=== PATIENT | female | born 1945 | race Caucasian/White ===

== ENCOUNTER 2024-12-14 12:51 | Outpatient (AMB) | payer MEDICARE, MEDICAID, SELFPAY ==
--- NOTE | 2024-12-14 13:36 | A.OFFVIS_ITS ---
Vital Signs 12/14/24 13:37 Height 5 ft 2 in Weight 124 lb BMI 22.7 BP 130/75 Blood Pressure Location Lt brachial Position Sitting Respiration 16 Pulse 86 Pulse Source Pulse Oximeter Pulse Oximetry (%) 97 Oxygen Delivery Method Room Air Intake Visit Reasons: Hip Pain S/P Fall College Sports Coach Required: No Accompanied by: Daughter Allergies bee pollen (BEE POLLEN) Allergy (Severe, Verified 12/14/24 13:41) SWELLING niacin (NIACIN) Allergy (Severe, Verified 12/14/24 13:41) DYSPNEA cimetidine (From TAGAMET) Allergy (Intermediate, Verified 12/14/24 13:41) VOMITING codeine (CODEINE) Allergy (Intermediate, Verified 12/14/24 13:41) N/V Penicillins (PENICILLINS) Allergy (Intermediate, Verified 12/14/24 13:41) N/V penicillin V Allergy (Mild, Verified 12/14/24 13:41) Unknown alendronate sodium (ALENDRONATE SODIUM) Allergy (Unknown, Verified 12/14/24 13:41) UNKNOWN Codeine Phosphate Allergy (Mild, Uncoded 12/14/24 13:41) Unknown HPI Comments Details: Lissett is very pleasant 79 years old female who presents in my office with complains on pain in the lateral surface of the left hip left lower extremity, she reported that her pain started on 09/05/2024. She slipped and fell on water and debris is on the floor. The area where she fell was area under ownership of a chirch and now the patient is suinf this chirch for undisclosed amount of money and damages. She broke her hip and she was performed ORIF of the left hip. She regained her ability to walk however the pain is continuous for the past 3 months. She reports that she can not sleep normally because of her pain she can not do activities of daily living she is taking Tylenol and Advil to help her pain. She had extensive physical therapy, physical therapy did not demonstrate any improvement. She had images appropriately performed demonstrating normal situation of the prosthesis. Past medical history significant for asthma hearing loss arthritis and issues of gallbladder she had large dilatation of gallbladder and obstruction of the common bile duct and pancreatic duct. She states that her numbers are now going to normal after the treatment. She denies any past surgery accept the surgery listed above, she denies smoking cigarettes denies drinking alcohol denies drinking coffee and caffeinated beverages denies recreational drugs. Review of Systems Const All systems reviewed & are unremarkable except as noted in HPI and below ENT Reports Normal hearing present Neuro Reports Normal hearing present, Denies Abnormal speech present, Denies confusion and Denies Sensory deficit (Neuro) Psych Denies confusion Physical Exam Vital Signs: Last Vital Signs Pulse 86 12/14/24 13:37 Resp 16 12/14/24 13:37 BP 130/75 12/14/24 13:37 Pulse Ox 97 12/14/24 13:37 Oxygen Delivery Method Room Air 12/14/24 13:37 BMI result Body Mass Index 22.7 Const General: no acute distress; No confusion Orientation/consciousness: patient oriented x3 and No confusion Eyes General: appearance normal, both eyes and all related structures Pupils: Equal, round and reactive pupils present EOM: EOMs intact bilaterally Neck Neck: Yes full ROM Chest Chest palpation & inspection: normal inspection of the chest Resp Effort & Inspection: normal respiratory effort, able to speak in complete sentences, normal respiratory pattern, no audible wheezes and no cough Cardio Jugular venous distension: no JVD GI Inspection: Yes normal to inspection Neuro General: patient oriented x3, gait normal and No confusion Cranial nerves: Yes CN's II-XII intact bilaterally, Yes Equal, round and reactive pupils present, Yes Normal hearing present and Yes Ability to bilaterally elevate shoulders present Speech: No Abnormal speech present Gait exam (Neuro): Normal gait present Motor exam (neuro): 5/5 motor strength present throughout Sensory Exam: No Sensory deficit (Neuro) Extrem Other: There are 2 small scars on the lateral surface of the right hip both of the scar is a very small no more than 3 cm long, there is no signs of inflammation and no pathological discharge. Range of motion of the right hip is limited compared to the left hip joint. General: No pedal edema Psych Speech and movement: Normal speech and movement present Affect: normal affect Attitude: cooperative Thought process: Normal thought process present Thought content: Normal thought content present Insight: Good insight present (Psych) Judgement: Good judgement present (Psych) Assessment & Plan Assessment & Plan (1) Osteoarthritis of right hip: Code(s): M16.11 - Unilateral primary osteoarthritis, right hip Category: Medical (2) Right hip pain: Code(s): M25.551 - Pain in right hip Category: Medical Plan I offered this patient to perform intra-articular hip steroid injection presuming that her condition is coming from arthritis of the right hip joint. Patient adamantly refused. She tried tramadol in the past and the tramadol being minimal doses and mild opioid gave her already mental status changes which would prevent continuation of this medication and any other opioid medications. I discussed possibility of treatment of the pain with this patient with minimal doses of baclofen. This is minimally sedative muscle relaxants which could help at least to sleep for at night. Patient agreed to try. Unfortunately she did not provide pharmacy for us so I can not prescribe it for her today. We will contact the patient and we will find out which pharmacy she prefers me to send baclofen 5 mg b.i.d.. We will schedule the appointment for the patient in 1 month to assess the results of baclofen. Coding Level of Care Code New Pt Level 3 (35780) Diagnoses Osteoarthritis of right hip M16.11 Right hip pain M25.551
[2024-12-14 13:37] VITALS: BP 130/75; PULSE 86; RESP 16; O2SAT 97; BMI 22.7
--- OUTSIDE RECORDS SUMMARY | 2024-12-14 15:52 | XMS_ITS | Encounter Summary ---
Author Organization [facility] Address [address] [place] [address] Care Team Providers Care Gang Supervisor Name Role Phone Lee Sanabria MD Primary Care Provider [phone] Encounter Details Date Type Department Care Team (Late st Contact Info) Description 09/15/2024 Lab Requisition [facility] - Main Lab [address] [facility] [place] [phone] Wyatt Otero MD [address] [place] [address] [phone] Anemia, unspecified Social History Tobacco Use Types Packs/Day Years Used Date Smoking Tobacco: Never Smokeless Tobacco: Never Alcohol Use Standard Drinks/Week Comments No 0 (1 standard drink = 0.6 oz pur e alcohol) Housing Instability Answer Date Recorde d Are you worried that in the next 2 months you may not have stable housing? No 03/09/2024 Food Access & Nutrition Answer Date Rec orded Do you have access to a vari ety of food including fruits and vegetables? Yes 03/09/2024 Access to Healthcare Answer Date Record ed Within the last 3 months, itz rangel many times did you visit the emergency department for your medical care? 1 03/09/2024 Health Literacy Answer Date Recorded How often do you need to hav e someone help you when you read instructions, pamphlets, or other written material from your doctor or pharmacy? Always 03/09/2024 Caregiver: How often do you need to have someone help you when you read instructions, pamphlets, or other written material from your doctor or pharmacy? Not on file 03/09/2024 Financial Risk Answer Date Recorded How hard is it for you to pa y for the very basics like food, housing, medical care, and air conditioning / heating? Very hard 03/09/2024 Transportation Answer Date Recorded Has the lack of transportati on kept you from meetings, work, or from getting things needed for daily living? No Has the lack of transportati on kept you from medical appointments or from getting medications? No 03/09/2024 Social Isolation Answer Date Recorded How often do you feel lonely or isolated from th ose around you? Rarely 03/09/2024 Food Risk Answer Date Recorded Within the past 12 months we worried whether our food would run out before we got money to buy more. Unable to respond 025 Within the past 12 months th e food we bought just didn't last and we didn't have money to get more. Unable to respond 08/2024 Dependent Care Answer Date Recorded Do you need help finding or paying for care for your loved ones. For example, director of early childhood or elderly care for an older adult? Patient declined 03/09/2024 Education Answer Date Recorded Do you think completing more education or training, like finishing a GED, going to college, or learning a trade, would be helpful for you? Patient declined 03/09/2024 Employment and Income Answer Date Recor ded During the last four weeks, have you been actively looking for work? Patient declined 03/09/2024 Living Situation Answer Date Recorded What is your living situation? 1 05/10/2023 Interpersonal Safety Answer Date Record ed Physical Abuse 09/06/2024 Verbal Abuse 09/06/2024 Comments No Sex and Gender Information Value Date Recorded Sex Assigned at Female 05/02/2024 8:52 PM EST Legal Sex Female 12:31 AM EST Gender Identity Female 05/02/2024 8:52 PM EST Sexual Orientation Straight 05/02/2024 8: 52 PM EST documented as of this encounter Functional Status * Are you deaf or do you have serious difficulty hearing? Answer Date of Assessment Author Yes 09/06/2024 6:04 PM EDT Leanne Haywood RN * Are you blind or do you have serious difficulty seeing, even when wearing glasses? Answer Date of Assessment Author No 09/06/2024 6:04 PM EDT Leanne Haywood RN * Do you have serious difficulty walking or climbing stairs? Answer Date of Assessment Author No 09/06/2024 6:04 PM EDT Leanne Haywood RN * Do you have serious difficulty dressing or bathing? Answer Date of Assessment Author No 09/06/2024 6:04 PM EDT Leanne Haywood RN * Because of a physical, mental, or emotional condition, do you have serious difficulty doing errandsalone such as visiting the doctor? Answer Date of Assessment Author Yes 09/06/2024 6:04 PM EDT Leanne Haywood RN documented as of this encounter Mental Status * Because of a physical, mental, or emotional condition, do you have serious difficulty concentrating, remembering, or making decisions? (5 years old or older) Answer Entry Date Author No 09/06/2024 6:04 PM EDT Leanne Haywood RN documented in this encounter Plan of Treatment Upcoming Encounters Date Type Department Care Team (Late st Contact Info) Description 04/10/2025 2:00 PM EST Office Visit Adult Medicine [facility] [address] [place], [place] [phone] Kinga Gardner NP [address] [place], [place] 04/25/2025 2:15 PM EST Office Visit General Surgery - [address] [place] [phone] Michelle Gallego MD [address] [place] [phone] documented as of this encounter Procedures Procedure Name Priority Date/Time Associated Diagnosis Comments COMPLETE BLOOD COUNT Routine 09/15/2024 5:17 AM EDT Anemia, unspecified COMPREHENSIVE METABOLIC PANEL Routine 09/15/2024 5:17 AM EDT Anemia, unspecified documented in this encounter Results * (ABNORMAL) Comprehensive metabolic panel (09/15/2024 5:17 AM EDT) Sodium 134 133 - 145 mmol/L LAB CHEMISTRY METHOD 09/15/2024 10:53 AM [facility] Potassium 4.2 3.5 - 5.5 mmol/L LAB CHEMISTRY METHOD 09/15/2024 10:53 AM [facility] Chloride 100 96 - 110 mmol/L LAB CHEMISTRY METHOD 09/15/2024 10:53 AM [facility] CO2 27 21 - 32 mmol/L LAB CHEMISTRY METHOD 09/15/2024 10:53 AM [facility] Anion Gap 7 3 - 11 LAB CHEMISTRY METHOD 09/15/2024 10:53 AM [facility] Glucose 70 70 - 100 mg/dL LAB CHEMISTRY METHOD 09/15/2024 10:53 AM [facility] BUN 18 5 - 25 mg/dL LAB CHEMISTRY METHOD 09/15/2024 10:53 AM [facility] Creatinine 0.62 0.50 - 1.10 mg/dL LAB CHEMISTRY METHOD 09/15/2024 10:53 AM [facility] eGFR 91 >=60 mL/min/1. 73m2 LAB CHEMISTRY METHOD 09/15/2024 10:53 AM [facility] Comment:Calculation based on the Chronic Kidney Disease Epidemiology Collaboration (CKD-EPI) equation refit without adjustment for race. BUN/Creatinine Ratio 29.0 LAB CHEMISTRY METHOD 09/15/2024 10:53 AM [facility] Calcium 9.0 8.5 - 10.5 mg/dL LAB CHEMISTRY METHOD 09/15/2024 10:53 AM [facility] AST (SGOT) 20 10 - 42 unit/L LAB CHEMISTRY METHOD 09/15/2024 10:53 AM EDT [facility] ALT (SGPT) 16 10 - 60 unit/L LAB CHEMISTRY METHOD 09/15/2024 10:53 AM EDT [facility] Alkaline Phosphatase 96 42 - 121 unit/L LAB CHEMISTRY METHOD 09/15/2024 10:53 AM EDT [facility] Total Protein 5.9(L) 6.0 - 8.0 g/dL LAB CHEMISTRY METHOD 09/15/2024 10:53 AM EDT [facility] Albumin 2.8(L) 3.2 - 5.0 g/dL LAB CHEMISTRY METHOD 09/15/2024 10:53 AM [facility] Total Bilirubin 0.5 0.0 - 1.4 mg/dL LAB CHEMISTRY METHOD 09/15/2024 10:53 AM [facility] Blood Venous blood specimen / Unknown Venipuncture / Unknown 09/15/2024 5:17 AM EDT 09/15/2024 9:26 AM EDT us Wyatt Otero MD LAB BLOOD ORDERABLES Final Result [facility] [address] [place] [address], * (ABNORMAL) Complete blood count (09/15/2024 5:17 AM EDT) WBC 9.9 4.8 - 10.8 K/mcL LAB HEMETOLOGY METHOD 09/15/2024 10:28 AM EDT [facility] RBC 3.30(L) 3.80 - 4.80 M/mcL LAB HEMETOLOGY METHOD 09/15/2024 10:28 AM EDT [facility] Hemoglobin 9.1(L) 11.5 - 16.0 g/dL LAB HEMETOLOGY METHOD 09/15/2024 10:28 AM EDT [facility] Hematocrit 29.7(L) 35.0 - 47.0 % LAB HEMETOLOGY METHOD 09/15/2024 10:28 AM EDT [facility] MCV 89.5 79.0 - 98.0 FL LAB HEMETOLOGY METHOD 09/15/2024 10:28 AM EDT [facility] MCH 27.4 27.0 - 32.0 pcg LAB HEMETOLOGY METHOD 09/15/2024 10:28 AM EDT [facility] MCHC 30.6(L) 32.0 - 37.0 g/dL LAB HEMETOLOGY METHOD 09/15/2024 10:28 AM EDT [facility] RDW 14.9 11.0 - 15.0 % LAB HEMETOLOGY METHOD 09/15/2024 10:28 AM [facility] Platelets 546(H) 130 - 400 K/mcL LAB HEMETOLOGY METHOD 09/15/2024 10:28 AM EDT [facility] MPV 9.2 7.0 - 11.0 FL LAB HEMETOLOGY METHOD 09/15/2024 10:28 AM EDT [facility] NRBC 0.0 <1.0 % LAB HEMETOLOGY METHOD 09/15/2024 10:28 AM [facility] NRBC Absolute 0.00 <0.10 K/mcL LAB HEMETOLOGY METHOD 09/15/2024 10:28 AM T [facility] Blood Venous blood specimen / Unknown Venipuncture / Unknown 09/15/2024 5:17 AM EDT 09/15/2024 9:26 AM EDT Wyatt Otero MD LAB BLOOD ORDERABLES Final Result [facility] [address] [place] [address], documented in this encounter Visit Diagnoses Diagnosis Anemia, unspecified documented in this encounter Additional Health Concerns Assessment Noted Time PHQ-9 Depression Total Score: 14 024 9:05 AM EST documented as of this encounter Care Teams Gang Supervisor Relationship Specialty Start Date End Date Lee Sanabria MD [address] [place] [address] PCP - General 11/26/10 documented as of this encounter
--- OUTSIDE RECORDS SUMMARY | 2024-12-14 15:52 | XMS_ITS | Clinical Summary ---
Author Organization [facility] Address [address] [place] [address] Care Team Providers Care Cracker Dough Mixer Name Role Phone Unavailable Primary Care Provider Unavailabl e Social History Tobacco Use Types Packs/Day Years Used Date Smoking Tobacco: Never Assessed Comments Unknown Sex and Gender Information Value Date Recorded Sex Assigned at Not on file Legal Sex Female 12:54 PM EDT Gender Identity Not on file Sexual Orientation Not on file Plan of Treatment Health Maintenance Due Date Last Done Comments Advance Care Planning 1945 Hepatitis C Virus Screening 1945 DTaP/Tdap/Td Vaccines (1 - Tdap) 1964 Pneumococcal Vaccines 50+ (1 of 1 - PCV) 1995 Zoster (Shingles) Vaccine (1 of 2) 1995 RSV Vaccine 60 years and old er and Patients (1 - 1-dose 75+ series) 2020 COVID-19 Vaccine ( - 2023-2 5 season) 2024 Hepatitis B Vaccines Aged Out No long er eligible based on patient's age to complete this topic
--- OUTSIDE RECORDS SUMMARY | 2024-12-14 15:52 | XMS_ITS | Clinical Summary ---
Author Organization [facility] Address [address] [place] [address] Care Team Providers Care Engineering Lab Technician Name Role Phone Lee Sanabria MD Primary Care Provider Allergies Active Allergy Reactions Criticality Noted Date Comments Codeine Other (See Comments) 10/18/2023 Altered mental status Niacin Hives 10/18/2023 Penicillins Hives 10/18/2023 Medications Medication Sig Dispensed Refills Start Date End Date Status sulfaSALAzine (AZULFIDINE) 500 MG tablet Take 1 tablet (500 mg total) by mouth daily. 0 11/10/2017 Active potassium chloride (KLOR-CON) 20 MEQ packet Take 20 mEq by mouth daily. 0 06/09/2023 Active Omeprazole 20 MG TBEC Take 20 mg by mouth daily. 0 11/10/2017 Active montelukast (SINGULAIR) 10 MG tablet Take 1 tablet (10 mg total) by mouth daily. 0 11/10/2017 Active fluticasone-salmetero l (ADVAIR HFA) 115-21 MCG/ACT inhaler Inhale 2 puffs into the lungs daily. 0 03/26/2023 Active amLODIPine (NORVASC) tablet 2.5 mg Take 1 tablet (2.5 mg total) by mouth daily. 0 09/09/2023 Active atorvastatin (LIPITOR) tablet 40 mg Take 1 tablet (40 mg total) by mouth daily. 0 11/10/2017 Active oxyCODONE (ROXICODONE) 5 MG immediate release tablet Take 1 tablet (5 mg total) by mouth every 8 (eight) hours as needed for pain. 20 tablet 0 10/30/2023 Active QUEtiapine (SEROquel) 50 MG tablet Take 1 tablet (50 mg total) by mouth 2 (two) times a day. 60 tablet 0 10/30/2023 Active Active Problems Problem Noted Date Diagnosed Date Ascending cholangitis 10/19/2023 Pancreatitis, unspecified pancreatitis type 10/04 Elevated bilirubin 10/18/2023 Acute hypotension 10/18/2023 Social History Tobacco Use Types Packs/Day Years Used Date Smoking Tobacco: Never Assessed Sex and Gender Information Value Date Recorded Sex Assigned at Female 10/18/2023 9:38 PM EDT Gender Identity Not on file Sexual Orientation Not on file Job Start Date Occupation Industry Not on file Not on file Not on file Last Filed Vital Signs Vital Sign Reading Time Taken Comments Blood Pressure 110/74 11/02/2023 5:44 AM EDT Pulse 98 11/02/2023 5:44 AM EDT Temperature 37.1 C (98.8 F) 11/02/2023 5:44 AM EDT Respiratory Rate 18 11/02/2023 5:44 AM EDT Oxygen Saturation 96% 11/02/2023 5:44 AM EDT Inhaled Oxygen Concentration - - Weight 55 kg (121 lb 4.1 oz) 10/18/2023 8:29 PM EDT Height 160 cm (5' 3 ) 10/19/2023 2:33 AM EDT Body Mass Index 21.48 10/18/2023 8:29 PM EDT Plan of Treatment Health Maintenance Due Date Last Done Comments Hepatitis C Screening 1945 Depression Screening 1957 Preventative Health Evaluation 1963 Fall Risk Assessment 2010 Osteoporosis Screening (DEXA Scan) 2010 Shingrix-Zoster Vaccine (2 of 2) 05/17/2019 03/22/2019 RSV Adult > 60+ Yrs or (1 - 1-dose 75+ series) 2020 COVID-19 Vaccine ( - season) 2024 01/18/2021, 06/01/2020, 05/11/2020 Influenza Vaccine (#1) 2024 2, 12/31/2020, 12/28/2017, Additional history exists DTap / Tdap / Td (2 - Td or Tdap) 11/26/2025 11/27/2015 Pneumococcal Vaccine Completed 10/26/2017, 11/23/2015, 12/12/2010 Hepatitis B Vaccines Aged Out No long er eligible based on patient's age to complete this topic RSV Ped < 20 months Aged Out No longe r eligible based on patient's age to complete this topic Advance Directives For more information, please contact: [phone] Latest Code Status on File Code Status Date Activated Date Inactivated Comments Full Code 10/18/2023 9:14 PM 11/02/2023 10:44 PM This code status was ascertained in the following way: per living will or healthcare instructions . Care Teams Engineering Lab Technician Relationship Specialty Start Date End Date Lee Sanabria MD PCP - General Internal Medicine 10/18/23
--- OUTSIDE RECORDS SUMMARY | 2024-12-14 15:52 | XMS_ITS | Encounter Summary ---
Author Organization [facility] Address [address] [place] [address] Care Team Providers Care Business Risk Consultant Name Role Phone Lee Sanabria MD Primary Care Provider [phone] Encounter Details Date Type Department Care Team (Late st Contact Info) Description 09/21/2024 Lab Requisition [facility] - Main Lab [address] [facility] [place] [phone] Wyatt Otero MD [address] [place] [address] [phone] Anemia, unspecified Social History Tobacco Use Types [...] care for your loved ones. For example, children's counselor or elderly care for an older adult? [...] 2:00 PM EST Office Visit Adult Medicine [facility] [place] [address] [place], [place] [phone] Kinga Gardner, SINDY [address] [place], [place] 04/25/2025 2:15 PM EST Office Visit General Surgery [address] [place] [address] Michelle Gallego MD [address] [place] [phone] documented as of this encounter Visit Diagnoses Diagnosis Anemia, unspecified documented in this encounter Additional Health Concerns Assessment Noted Time PHQ-9 Depression Total Score: 14 024 9:05 AM EST documented as of this encounter Care Teams Business Risk Consultant Relationship Specialty Start Date End Date Lee Sanabria MD [address] [place] [address] PCP - General 11/26/10 documented as of this encounter
--- OUTSIDE RECORDS SUMMARY | 2024-12-14 15:52 | XMS_ITS | Clinical Summary ---
Author Organization [address] Address [address] [place] [address] Phone Care Team Providers Care Dog License Officer Supervisor Name Role Phone Lee Sanabria MD Primary Care Provider [phone] Allergies Active Allergy Reactions Criticality Noted Date Comments Alendronate Sodium 04/10/2005 per pt Bee Venom Protein (Honey Bee) Swelling 09/18/2007 Cimetidine 04/10/2005 can not take generic Codeine Other 04/10/2005 hallucinations Altered mental status Niacin Hives,Rash 04/10/2005 Penicillins Hives 04/10/2005 Quetiapine 11/11/2023 Medications calcium carbonate (OS-PARMINDER) 1,250 mg (500 mg elemental calcium) tablet Take 1 tablet (1,250 mg total) by mouth 2 (two) times a day. 04/24/19 24 Active fluticasone propion-salmet Abhishek (ADVAIR HFA) 115-21 mcg/actuation inhaler Inhale 2 puffs into the lungs daily. 03/26/20 23 Active albuterol HFA (PROAIR HFA ; PROVENTIL HFA ; VENTOLIN HFA) 90 mcg/actuation inhaler Inhale 2 Puffs into the lungs as needed for Cough or Wheezing. 12/11/19 22 Active psyllium (METAMUCIL) 3.4 gram packet Take 1 packet by mouth 1 (one) time each day. Active atorvastatin (LIPITOR) 80 mg tablet Take 1 tablet (80 mg total) by mouth 1 (one) time each day. 90 tablet 1 05/20/19 25 Active montelukast (SINGULAIR) 10 mg tablet Take 1 tablet (10 mg total) by mouth 1 (one) time each day. 90 tablet 1 05/20/19 25 Active magnesium oxide (MAG-OX) 400 mg magnesium tablet Take 1 tablet (400 mg total) by mouth 1 (one) time each day. Active lidocaine 4 % patch Apply 2 patches topically 1 (one) time each day. 09/13/19 25 Active senna (SENOKOT) 8.6 mg tablet Take 2 tablets (17.2 mg total) by mouth at bedtime. 09/12/19 25 026 Active aspirin 81 mg EC tablet Take 1 tablet (81 mg total) by mouth 2 (two) times a day. For DVT prophylaxis. Take 81 mg orally twice a day for 6 weeks after surgery and then 81 mg daily indefinitely. 09/13/19 25 026 Active Vitamin D3 50 mcg (2,000 unit) tablet TAKE 1 TABLET (2,000 UNITS TOTAL) BY MOUTH ONCE DAILY 90 tablet 1 11/15/19 25 Active amLODIPine (NORVASC) 2.5 mg tablet TAKE 1 TABLET BY MOUTH EVERY DAY 90 tablet 1 11/23/19 25 Active omeprazole (PriLOSEC) [address] capsule TAKE 1 CAPSULE BY MOUTH EVERY DAY 90 capsule 1 11/23/19 25 Active acetaminophen (TYLENOL) 325 mg tablet Take 1 tablet (325 mg total) by mouth every 4 (four) hours if needed. Active amLODIPine (NORVASC) 2.5 mg tablet TAKE 1 TABLET BY MOUTH EVERY DAY 90 tablet 1 05/26/19 25 025 Discontinued omeprazole (PriLOSEC) [address] capsule TAKE 1 CAPSULE BY MOUTH EVERY DAY 90 capsule 1 05/26/19 25 025 Discontinued Active Problems Problem Noted Date Diagnosed Date Anemia 09/27/2024 Fall, initial encounter 09/06/2024 COVID-19 04/19/2024 Assessment & Plan (05/02/2024 1:02 PM EST): Dilated pancreatic duct 03/01/2024 Assessment & Plan (03/02/2024 9:35 AM EST): I will need to get her GI office notes, despite my growing familiarity with the pt and family dynamic as well as review of previous primary office notes, I admittedly do not have a clear clinical picture. It seems the pt has a dilated pancreatic duct and CBD, and was referred by her GI doctor Dr. Nye at [facility] to see [facility] General surgery. I do see record in the system that staff at their office had tried to contact the family but have difficulties getting through. I spoke with pt's daughter and health care proxy Tegan about this, and advised her to call them back to schedule. She told me they didn't know why she was calling them so I will place a referral to hopefully eliminate any confusion. We will try again to get records from [facility] GI. Orders: Ambulatory referral to General Surgery; Future HTN (hypertension), benign 03/01/2024 Assessment & Plan (03/02/2024 9:35 AM EST): Will continue amlodipine. BP well controlled. Orders: Thyroid stimulating hormone; Future Lipid panel with reflex to direct LDL; Future Comprehensive metabolic panel; Future Complete blood count; Future Hyperlipidemia 03/01/2024 Assessment & Plan (03/02/2024 9:35 AM EST): Triglycerides 203 in October, will follow annually. Pt remains on atorvastatin. Orders: Thyroid stimulating hormone; Future Lipid panel with reflex to direct LDL; Future Comprehensive metabolic panel; Future Complete blood count; Future Thyroid nodule 03/01/2024 Assessment & Plan (03/31/2024 10:28 AM EST): Orders: Thyroid stimulating hormone; Future Basic metabolic panel; Future Complete blood count; Future Iron and TIBC; Future Ferritin; Future Assessment & Plan (03/02/2024 9:35 AM EST): History of follicular adenoma removed 2021. Her last TSH was about a year ago at 3.99. Orders placed for repeat testing. 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 Seronegative rheumatoid arth ritis ([facility] V24, [facility] V28) 03/01/2024 Assessment & Plan (03/02/2024 9:35 AM EST): She has been referred to rheumatology for this. We do not have any recent record. The patient has described receiving corticosteroid injections for this. Asthma 03/01/2024 Assessment & Plan (03/02/2024 9:35 AM EST): Her lungs are clear on examination today. Her breathing has been stable. Orders: Thyroid stimulating hormone; Future Lipid panel with reflex to direct LDL; Future Comprehensive metabolic panel; Future Complete blood count; Future Encounters Date Type Department Care Team Description 11/28/2024 2:00 PM EDT Office Visit Adult Medicine [address] [phone] Kinga Gardner NP S/P right hip fracture (Primary Dx); Accidental fall, subsequent encounter; Chronic pain of left knee; Gallbladder anomaly; Elevated TSH 11/23/[address] [phone] Mary Morel MA 11/21/2024 9:05 AM EDT - 11/21/2024 11:59 PM EDT Hospital Encounter [facility] Ortho Xray [address] [place] [address] Pain Discharge Disposition: Home or Self Care 11/21/2024 7:50 AM EDT - 11/21/2024 11:59 PM EDT Hospital Encounter [facility] Ortho Xray [address] [place] [address] Pain Discharge Disposition: Home or Self Care 10/25/2024 9:45 AM EDT Office Visit General Surgery [facility] [address] [place] [phone] Michelle Gallego MD Choledocholithiasis (Primary Dx); Weight loss; History of acute cholangitis; Dilated pancreatic duct 10/13/[address] [phone] Lee Sanabria MD 10/06/[address] [phone] Lee Sanabria MD 10/03/[address] [phone] Lee Sanabria MD 09/27/2024 10:00 AM EDT Office Visit [address] [phone] Lee Sanabria MD S/P right hip fracture (Primary Dx); Moderate mixed hyperlipidemia not requiring statin therapy; Anemia, unspecified type; HTN (hypertension), benign; Accidental fall, subsequent encounter 09/22/2024 8:49 AM EDT - 09/22/2024 11:59 PM EDT Hospital Encounter [facility] Ortho Xray [address] [place] [address] Pain Discharge Disposition: Home or Self Care 09/21/2024 Lab Requisition [facility] Lab [address] [facility] [place] [phone] Wyatt Otero MD Anemia, unspecified 09/20/[address] [phone] Lee Sanabria MD 09/19/[address] [phone] Lee Sanabria MD 09/15/[address] [facility] Lab [address] [facility] [employer] [place] [address] Wyatt Otero MD Anemia, unspecified 09/06/2024 5:45 PM EDT - 09/14/2024 3:05 PM EDT Hospital Encounter [facility] Unit [address] [place] [address] Ollie Gupta MD Maduakor, Emmanuel C, MD Zipagan, James T, MD Kokosadze, Estate, MD Closed fracture of right hip, initial encounter ([facility] V24, [facility] V28) (Primary Dx); Fall, initial encounter; Closed head injury, initial encounter; Right hip pain Discharge Disposition: [facility] Facility from Last 3 Months Immunizations Name Administration Dates Next Due Influenza trivalent, 0.5mL ( Fluad) 65yo and older 03/31/2024,01/14/2022,12/31/2020,12/28,01/15/2017 Influenza trivalent, 0.5mL, preservative free (Fluarix; FluLaval; Fluzone) ages 6mo and older (Afluria) 3 years and older 03/05/2016,03/15/2015 Pneumococcal conjugate 13 va lent (Prevnar 13, PCV13) 2mo and older 10/26/2017 Pneumococcal polysaccharide 23 valent (Pneumovax 23) 2yo and older 11/23/2015,12/12/2010 Tdap Tetanus diptheria acell ular pertussis (Boostrix; Adacel) 7yo and older 11/27/2015 Zoster recombinant (Shingrix ) 19yo and older 03/22/2019 Surgical History Surgery Date Site/Laterality Comments CATARACT EXTRACTION PROCEDURE: HISTORICAL CATARACT REMOVAL OTHER SURGICAL HISTORY 06/25/2021 Left PROCEDURE: ---- OTHER ----; COMMENT: hemoithyriudectomy HYSTERECTOMY CT PERCUTANEOUS CHOLECYSTECTOMY cholecystostomy tube or percutaneous cholecystostomy tube TOTAL KNEE ARTHROPLASTY Medical History Medical History Date Comments Unspecified asthma(493.90) 12/30/2005 DX:Un specified asthma(493.90) Esophageal reflux 06/26/2006 DX:Esophageal reflux Heart disease, unspecified DX:He art disease, unspecified Unspecified glaucoma(365.9) DX:U nspecified glaucoma(365.9) Hearing loss 09/23/2012 DX:Hearing loss; COMMENT: See note 09/23/12 Thyroid nodule 02/09/2017 DX:Thyroid nodul e Cataract 12/28/2017 DX:Cataract; COM MENT: S/p surgery 2018 COVID-19 virus infection 02/22/2020 DX:COVI D-19 virus infection Essential hypertension 06/11/2020 DX:Essent ial hypertension Hyperlipidemia DX:Hyperlipidemi a HTN (hypertension), benign 03/01/2024 Thyroid nodule 03/01/2024 Family History Medical History Relation Name Comments Breast cancer Aunt 2 m aunts No Known Problems Brother No Known Problems Father No Known Problems Maternal Grandfather No Known Problems Maternal Grandmother Heart attack Mother age 59 Breast cancer Other 1 1 m cousins No Known Problems Paternal Grandfather No Known Problems Paternal Grandmother No Known Problems Sister No Known Problems Uncle Blindness Neg Hx Cataracts Neg Hx Glaucoma Neg Hx Macular degeneration Neg Hx Strabismus Neg Hx Relation Name Status Comments Aunt 2 m aunts Brother Father Maternal Grandfather Maternal Grandmother Mother Other 1 1 m cousins Other 2 Other Paternal Grandfather Paternal Grandmother Sister Uncle Social History Tobacco Use Types Packs/Day Years Used Date Smoking Tobacco: Never Smokeless Tobacco: Never Tobacco Cessation:Counseling Given: Not Answered Alcohol Use Standard Drinks/Week Comments No 0 [...] Record ed Within the last 3 months, ho w many times did you visit the emergency [...] care for your loved ones. For example, child care giver or elderly care for an older adult? [...] Orientation Straight 05/02/2024 8: 52 PM EST Obstetrics History Last Filed Vital Signs Vital Sign Reading Time Taken Comments Blood Pressure 129/82 11/28/2024 1:42 PM EDT Pulse 96 11/28/2024 1:42 PM EDT Temperature 36.3 C (97.4 F) 11/28/2024 1:42 PM EDT Respiratory Rate 14 11/28/2024 1:42 PM EDT Oxygen Saturation 94% 11/28/2024 1:42 PM EDT Inhaled Oxygen Concentration - - Weight 56.7 kg (125 lb) 11/28/2024 1:42 PM EDT Height 157.5 cm (5' 2 ) 11/28/2024 1:42 PM EDT Body Mass Index 22.86 11/28/2024 1:42 PM EDT Plan of Treatment Upcoming Encounters Date Type Department Care Team (Late st Contact Info) Description 04/10/2025 2:00 PM EST Office Visit Adult Medicine [facility] [address] [place], [place] [phone] Kinga Gardner NP [address] [place], [place] 04/25/2025 2:15 PM EST Office Visit General Surgery - [place] [address] [facility] [address] [place] [address] Michelle Gallego MD [address] [place] [phone] Health Maintenance Due Date Last Done Comments Zoster Vaccines (2 of 2) 05/17/2019 03/22/2019 RSV Immunization Adult Patients (1 - 1-dose 75+ series) 2020 Osteoporosis Screening (Bone Density Screening) 03/15/2022 Depression Screening 04/06/2024 03/31/2024 COVID-19 Vaccine ( season) 2024 01/18/2021, 06/01/2020, 05/11/2020 Influenza Vaccine (#1) 2024 , 03/06/2023, 01/14/2022, Additional history exists Medicare Annual Wellness Visit 03/31/2025 03/31/2024 Social Influencers of Health Screening 09/08/2025 09/08/2024 Falls Risk Assessment 09/14/2025 09/14/2024, 024 Hypertension/CHF/CAD Annual BMP Blood Test 09/15/2025 09/15/2024, 09/09/2024, 09/07/2024, Additional history exists Cholesterol Screening (Lipid Panel) 03/21/2029 03/21/2024, 03/26/2022 DTaP,Tdap,and Td Vaccines (3 - Td or Tdap) 11/13/2033 11/14/2023, 11/27/2015 Hepatitis C Screening Completed 03/08/2015 Pneumococcal Vaccine: 50+ Years Completed 10/26/2017, 11/23/2015, 12/12/2010 HIB Vaccines Aged Out No longer eligi ble based on patient's age to complete this topic HPV Vaccines Aged Out No longer eligi ble based on patient's age to complete this topic Hepatitis A Vaccines Aged Out No long er eligible based on patient's age to complete this topic Hepatitis B Vaccines Aged Out No long er eligible based on patient's age to complete this topic IPV Vaccines Aged Out No longer eligi ble based on patient's age to complete this topic MMR Vaccines Aged Out No longer eligi ble based on patient's age to complete this topic Meningococcal ACWY Vaccine Aged Out N o longer eligible based on patient's age to complete this topic Meningococcal B Vaccine Aged Out No l onger eligible based on patient's age to complete this topic RSV Immunization Patients Under 20 months Aged Out No longer eligible based on patient's age to complete this topic Varicella Vaccines Aged Out No longer eligible based on patient's age to complete this topic Medical Devices Implanted Type Area Professor Of Geography Device Identifier Shelf Expiration Date Model / Serial / Lot Nail Trochant [id number] 130deg [employer] Ti - Sn/A - [id number] Implanted:Qty: 1 on 09/07/2024 by Iván Hassan MD at [facility] Internal and External Fixation Right: Hip [facility] 1176.6034 S / N/A / [id number] Screw Lag 10.5x90mm Ti [employer] Troch Nail Sys - Sn/A - [id number] Implanted:Qty: 1 on 09/07/2024 by Iván Hassan MD at [facility] Internal and External Fixation Right: Hip [facility] 1176.0090 S / N/A / [id number] K-[employer] Thrd Drill Point [id number] - Sn/A - [id number] Implanted:Qty: 1 on 09/07/2024 by Iván Hassan MD at [facility] Internal and External Fixation Right: Hip [facility] [id number] S / N/A / N/A Procedures Procedure Name Priority Date/Time Associated Diagnosis Comments XR FEMUR 2+ VIEWS RIGHT Routine 11/21/2024 9:12 AM EDT Pain XR HIP 2-3 VIEWS RIGHT Routine 11/21/2024 9:12 AM EDT Pain XR FEMUR 2+ VIEWS RIGHT Routine 09/22/2024 9:00 AM EDT Pain COMPREHENSIVE METABOLIC PANEL Routine 09/15/2024 5:17 AM EDT Anemia, unspecified COMPLETE BLOOD COUNT Routine 09/15/2024 5:17 AM EDT Anemia, unspecified ECG OUTSIDE 09/15/2024 ECG ANNOTATED 09/15/2024 LIPID PANEL WITH REFLEX TO DIRECT LDL Routine 03/21/2024 12:27 PM EST HTN (hypertension), benign Hyperlipidemia, unspecified hyperlipidemia type Thyroid nodule Seronegative rheumatoid arthritis (CMS/HCC V24, CMS/HCC V28) Asthma, unspecified asthma severity, unspecified whether complicated, unspecified whether persistent FALLS RISK ASSESSMENT Routine 06/08/2023 HEPATITIS C SCREENING Routine 03/08/2015 from Last 3 Months or Most Recently Relevant to Health Maintenance Results * XR Femur 2+ Views Right (11/21/2024 9:12 AM EDT) Only the most recent of2 resultswithin the time period is included. Narrative RIS PACS/VR - 11/21/2024 9:12 AM EDT This order has been auto-finalized and does not contain a result. us Teri Meneses MD IMG XR PROCEDURES Final Result RIS PACS/VR * XR Hip 2-3 Views Right (11/21/2024 9:12 AM EDT) Narrative RIS PACS/VR - 11/21/2024 9:12 AM EDT This order has been auto-finalized and does not contain a result. us Teri Meneses MD IMG XR PROCEDURES Final Result RIS PACS/VR * (ABNORMAL) Complete blood count (09/15/2024 5:17 AM EDT) [facility] Signature WBC 9.9 4.8 - 10.8 K/mcL LAB HEMETOLOGY METHOD 09/15/2024 10:28 AM EDT [facility] RBC 3.30(L) 3.80 - 4.80 M/mcL LAB [facility] Hemoglobin 9.1(L) 11.5 - 16.0 g/dL LAB HEMETOLOGY METHOD 09/15/2024 10:28 AM [facility] Hematocrit 29.7(L) 35.0 - 47.0 % LAB HEMETOLOGY METHOD [facility]15[facility]2024 10[facility] MCV 89.5 79.0 - 98.0 FL LAB HEMETOLOGY METHOD 09/15/2024 10:[facility] MCH 27.4 27.0 - 32.0 pcg LAB HEMETOLOGY METHOD 09/15/2024 10:28 AM [facility] MCHC 30.6(L) 32.0 - 37.0 g/dL LAB HEMETOLOGY METHOD 09/15/2024 10:[facility] RDW 14.9 11.0 - 15.0 % LAB HEMETOLOGY METHOD 09/15/2024 10:[facility] Platelets 546(H) 130 - 400 K/mcL LAB HEMETOLOGY METHOD 09/15/2024 10:28 AM [facility] MPV 9.2 7.0 - 11.0 FL LAB HEMETOLOGY METHOD 09/15/2024 10:[facility] NRBC 0.0 <1.0 % LAB HEMETOLOGY METHOD 09/15/2024 10:28 AM EDT [facility] LAB NRBC Absolute 0.00 <0.10 K/mcL LAB HEMETOLOGY METHOD 09/15/2024 10:28 AM [facility] LAB Blood Venous blood specimen / Unknown Venipuncture / Unknown 09/15/2024 5:17 AM EDT 09/15/2024 9:26 AM EDT us Wyatt Otero MD LAB BLOOD ORDERABLES Final Result [facility] [address] [place] [address], * (ABNORMAL) Comprehensive metabolic panel (09/15/2024 5:17 AM EDT) Sodium 134 133 - 145 mmol/L LAB CHEMISTRY METHOD 09/15/2024 10:53 AM [facility] LAB Potassium 4.2 3.5 - 5.5 mmol/L LAB CHEMISTRY METHOD 09/15/2024 10:53 AM [facility] LAB Chloride 100 96 - 110 mmol/L LAB CHEMISTRY METHOD 09/15/2024 10:53 AM [facility] CO2 27 21 - 32 mmol/L LAB CHEMISTRY METHOD 09/15/2024 10:53 AM [facility] Anion Gap 7 3 - 11 LAB CHEMISTRY METHOD 09/15/2024 10:53 AM [facility] LAB Glucose 70 70 - 100 mg/dL LAB CHEMISTRY METHOD 09/15/2024 10:53 AM [facility] BUN 18 5 - 25 mg/dL LAB CHEMISTRY METHOD 09/15/2024 10:53 AM [facility] LAB Creatinine 0.62 0.50 - 1.10 mg/dL LAB CHEMISTRY METHOD 09/15/2024 10:53 AM [facility] LAB eGFR 91 >=60 mL/min/1. 73m2 LAB CHEMISTRY METHOD 09/15/2024 10:53 AM [facility] LAB Comment:Calculation based on the Chronic Kidney Disease Epidemiology Collaboration (CKD-EPI) equation refit without adjustment for race. BUN/Creatinine Ratio 29.0 LAB CHEMISTRY METHOD 09/15/2024 10:53 AM [facility] Calcium 9.0 8.5 - 10.5 mg/dL LAB CHEMISTRY METHOD 09/15/2024 10:53 AM [facility] AST (SGOT) 20 10 - 42 unit/L LAB CHEMISTRY METHOD 09/15/2024 10:53 AM [facility] ALT (SGPT) 16 10 - 60 unit/L LAB CHEMISTRY METHOD 09/15/2024 10:53 AM [facility] Alkaline Phosphatase 96 42 - 121 unit/L LAB CHEMISTRY METHOD 09/15/2024 10:53 AM [facility] Total Protein 5.9(L) 6.0 - 8.0 g/dL LAB CHEMISTRY METHOD 09/15/2024 10:53 AM [facility] Albumin 2.8(L) 3.2 - 5.0 g/dL LAB CHEMISTRY METHOD 09/15/2024 10:53 AM [facility] Total Bilirubin 0.5 0.0 - 1.4 mg/dL LAB CHEMISTRY METHOD 09/15/2024 10:53 AM [facility] LAB Blood Venous blood specimen / Unknown Venipuncture / Unknown 09/15/2024 5:17 AM EDT 09/15/2024 9:26 AM EDT us Wyatt Otero MD LAB BLOOD ORDERABLES Final Result [facility] [address] [place] [address], [place] [phone] * ECG-Outside (09/15/2024) us Provider Onbase MD ECG ORDERABLES Final Result * ECG-Annotated (09/15/2024) us Provider Onbase MD ECG ORDERABLES Final Result * Lipid panel with reflex to direct LDL (03/21/2024 12:27 PM EST) [facility] Cholesterol 177 0 - 200 mg/dL LAB CHEMISTRY METHOD 03/21/2024 7:30 PM EST [facility] LAB Triglycerides 117 0 - 150 mg/dL LAB CHEMISTRY METHOD 03/21/2024 7:30 PM EST [facility] LAB HDL 58 >=40 mg/dL LAB CHEMISTRY METHOD 03/21/2024 7:30 PM [facility] LDL Calculated 96 0 - 100 mg/dL LAB CHEMISTRY METHOD 03/21/2024 7:30 PM EST [facility] LAB VLDL Cholesterol Parminder 23.4 mg/dL LAB CHEMISTRY METHOD 03/21/2024 7:30 PM EST [facility] LAB Non HDL Chol. (LDL+VLDL) 119 <145 mg/dL LAB CHEMISTRY METHOD 03/21/2024 7:30 PM EST [facility] LAB Chol/HDL Ratio 3.1 0.0 - 4.4 LAB CHEMISTRY METHOD 03/21/2024 7:30 PM EST [facility] LAB Blood Venous blood specimen / Unknown Venipuncture / Unknown 03/21/2024 12:27 PM EST 03/21/2024 12:27 PM EST Prasanna GOLDEN LAB BLOOD ORDERABLES Fin al Result [facility] [address] [place] [address], * Falls Risk Assessment (06/08/2023) Falls Risk Assessment abstractedabstracted us Historical Provider HEALTH MAINTENANCE Final Result * Hepatitis C Screening (03/08/2015) Hepatitis C Screening abstracted us Historical Provider HEALTH MAINTENANCE Final Result from Last 3 Months or Most Recently Relevant to Health Maintenance Insurance A[employer]NA MEDICARE ADVANTAGE MEDICAID - ID AUTO GENERIC AETNA MEDICARE ADVANTAGE MEDICAID [facility] Advance Directives Documents on File Type Date Recorded Patient Student Financial Services Counselor Expl anation Advance Directives and Living Will 09/09/2024 3:05 PM [facility] Pr oxy * Full Code - Default (Latest Code Status on File) Date Activated Date Inactivated Comments 09/06/2024 7:36 PM 09/14/2024 5:10 PM This is order is used when code status has not been discussed with the patient, or code status is otherwise unknown/unconfirmed To update the patient's code status, place a code status order. Do not modify or discontinue any currently active code status orders. * Full Code - Default Date Activated Date Inactivated Comments 04/19/2024 4:47 PM 2024 2:37 PM This is orde r is used when code status has not been discussed with the patient, or code status is otherwise unknown/unconfirmed To update the patient's code status, place a code status order. Do not modify or discontinue any currently active code status orders. Healthcare Agents on File Name Relationship Healthcare Agent Relationshi p Communication Tegan Auguste Daughter First Alternate Health Care Agent [email or web address] Jolene Auguste Daughter Second Alternate Health Care Agent Care Teams Dog License Officer Supervisor Relationship Specialty Start Date End Date Lee Sanabria MD [address] [place] [id number] PCP - General 11/26/10
== END 2024-12-14 14:17 | disposition home or self-care (01) ==
LOC: HO.PMC 12:52
PROVIDERS: PCP Internal Medicine; Visit Provider Anesthesiology
DX: M16.11 Unilateral primary osteoarthritis, right hip (principal); M25.551 Pain in right hip
CPT/HCPCS: 99203

== ENCOUNTER → 2024-12-14 12:51 | Outpatient (BNVA) | payer MEDICARE, MEDICAID, SELFPAY | PROVIDERS: PCP Internal Medicine; Visit Provider Anesthesiology | DX: M16.11 Unilateral primary osteoarthritis, right hip (principal); M25.551 Pain in right hip | CPT/HCPCS: 99202 ==

== ENCOUNTER 2025-01-12 13:32 | Outpatient (AMB) | payer MEDICARE, MEDICAID, SELFPAY ==
--- NOTE | 2025-01-12 14:11 | A.OFFVIS_ITS ---
Vital Signs 01/12/25 14:12 Height 5 ft 2 in Weight 124 lb BMI 22.7 BP 123/64 Blood Pressure Location Rt brachial Position Sitting Respiration 16 Pulse 79 Pulse Source Pulse Oximeter Pulse Oximetry (%) 95 Oxygen Delivery Method Room Air Intake Visit Reasons: 1 MONTH FOLLOW UP Chaplaincy Required: No Accompanied by: Daughter Allergies bee pollen (BEE POLLEN) Allergy (Severe, Verified 01/12/25 14:11) SWELLING niacin (NIACIN) Allergy (Severe, Verified 01/12/25 14:11) DYSPNEA cimetidine (From TAGAMET) Allergy (Intermediate, Verified 01/12/25 14:11) VOMITING codeine (CODEINE) Allergy (Intermediate, Verified 01/12/25 14:11) N/V Penicillins (PENICILLINS) Allergy (Intermediate, Verified 01/12/25 14:11) N/V penicillin V Allergy (Mild, Verified 01/12/25 14:11) Unknown alendronate sodium (ALENDRONATE SODIUM) Allergy (Unknown, Verified 01/12/25 14:11) UNKNOWN Codeine Phosphate Allergy (Mild, Uncoded 12/14/24 13:41) Unknown HPI Comments Details: Lissett is back in my office with report on baclofen medication. He reports that 5 mg helps her sleep at night however she wakes up in the middle of the night with sensation of cramping in her lower extremities. I will change the dose of the medication for her I will change it to 5 mg of baclofen t.i.d. and I will allow the patient to take 2 pills of baclofen at night and 1 pill during the daytime. Next appointment in 1 month. Prior: complains on pain in the lateral surface of the left hip left lower extremity, she reported that her pain started on 09/05/2024. She slipped and fell on water and debris is on the floor. The area where she fell was area under ownership of a chirch and now the patient is suinf this [employer] for undisclosed amount of money and damages. She broke her hip and she was performed ORIF of the left hip. She regained her ability to walk however the pain is continuous for the past 3 months. She reports that she can not sleep normally because of her pain she can not do activities of daily living she is taking Tylenol and Advil to help her pain. She had extensive physical therapy, physical therapy did not demonstrate any improvement. She had images appropriately performed demonstrating normal situation of the prosthesis. Past medical history s ignificant for asthma hearing loss arthritis and issues of gallbladder she had large dilatation of gallbladder and obstruction of the common bile duct and pancreatic duct. She states that her numbers are now going to normal after the treatment. She denies any past surgery accept the surgery listed above, she denies smoking cigarettes denies drinking alcohol denies drinking coffee and caffeinated beverages denies recreational drugs. Review of Systems Const All systems reviewed & are unremarkable except as noted in HPI and below ENT Reports Normal hearing present Neuro Reports Normal hearing present, Denies Abnormal speech present, Denies confusion and Denies Sensory deficit (Neuro) Psych Denies confusion Physical Exam Vital Signs: Last Vital Signs Pulse 79 01/12/25 14:12 Resp 16 01/12/25 14:12 BP 123/64 01/12/25 14:12 Pulse Ox 95 01/12/25 14:12 Oxygen Delivery Method Room Air 01/12/25 14:12 BMI result Body Mass Index 22.7 Const General: no acute distress; No confusion Orientation/consciousness: patient oriented x3 and No confusion Eyes General: appearance normal, both eyes and all related structures Pupils: Equal, round and reactive pupils present EOM: EOMs intact bilaterally Neck Neck: Yes full ROM Chest Chest palpation & inspection: normal inspection of the chest Resp Effort & Inspection: normal respiratory effort, able to speak in complete sentences, normal respiratory pattern, no audible wheezes and no cough Cardio Jugular venous distension: no JVD GI Inspection: Yes normal to inspection Neuro General: patient oriented x3, gait normal and No confusion Cranial nerves: Yes CN's II-XII intact bilaterally, Yes Equal, round and reactive pupils present, Yes Normal hearing present and Yes Ability to bilaterally elevate shoulders present Speech: No Abnormal speech present Gait exam (Neuro): Normal gait present Motor exam (neuro): 5/5 motor strength present throughout Sensory Exam: No Sensory deficit (Neuro) Extrem Other: There are 2 small scars on the lateral surface of the right hip both of the scar is a very small no more than 3 cm long, there is no signs of inflammation and no pathological discharge. Range of motion of the right hip is limited compared to the left hip joint. General: No pedal edema Psych Speech and movement: Normal speech and movement present Affect: normal affect Attitude: cooperative Thought process: Normal thought process present Thought content: Normal thought content present Insight: Good insight present (Psych) Judgement: Good judgement present (Psych) Assessment & Plan Assessment & Plan (1) Osteoarthritis of right hip: Code(s): M16.11 - Unilateral primary osteoarthritis, right hip Category: Medical (2) Right hip pain: Code(s): M25.551 - Pain in right hip Category: Medical Plan I offered this patient to perform intra-articular hip steroid injection presuming that her condition is coming from arthritis of the right hip joint. Patient adamantly refused. She tried tramadol in the past and the tramadol being minimal doses and mild opioid gave her already mental status changes which would prevent continuation of this medication and any other opioid medications. I prescribes her baclofen 5 mg b.i.d. for her she denies side effects but reports medication minimally effective. We will increase it to 5 mg t.i.d. and allow her to take 2 pills at night. Next appointment in 1 month. Medications: New baclofen Patient may take 2 pills of baclofen at night help her to sleep. 5 mg PO TID 90 tabs 8RF 30 days Discontinued baclofen Discontinued Reason: Doctor's Order 5 mg PO BID 30 days 60 tabs 8RF Coding Level of Care Code Est Pt Level 3 (96946) Diagnoses Osteoarthritis of right hip M16.11 Right hip pain M25.551
[2025-01-12 14:12] VITALS: BP 123/64; PULSE 79; RESP 16; O2SAT 95; BMI 22.7
== END 2025-01-12 14:59 | disposition home or self-care (01) ==
LOC: HO.PMC 13:32
PROVIDERS: PCP Internal Medicine; Visit Provider Anesthesiology
DX: M16.11 Unilateral primary osteoarthritis, right hip (principal); M25.551 Pain in right hip
CPT/HCPCS: 99213

== ENCOUNTER → 2025-01-12 13:32 | Outpatient (BNVA) | payer MEDICARE, MEDICAID, SELFPAY | PROVIDERS: PCP Internal Medicine; Visit Provider Anesthesiology | DX: M16.11 Unilateral primary osteoarthritis, right hip (principal); M25.551 Pain in right hip | CPT/HCPCS: 99212 ==

== ENCOUNTER 2025-02-09 10:45 | Outpatient (AMB) | payer MEDICARE, MEDICAID, SELFPAY ==
--- NOTE | 2025-02-09 10:46 | A.OFFVIS_ITS ---
Vital Signs 02/09/25 10:57 Height 5 ft 2 in Weight 130 lb BMI 23.8 BP 130/73 Blood Pressure Location Lt brachial Position Sitting Respiration 16 Pulse 78 Pulse Source Pulse Oximeter Pulse Oximetry (%) 96 Oxygen Delivery Method Room Air Intake Visit Reasons: 1 Month Follow Up Rotary Cutter Feeder Required: No Accompanied by: Daughter Allergies bee pollen (BEE POLLEN) Allergy (Severe, Verified 02/09/25 11:00) SWELLING niacin (NIACIN) Allergy (Severe, Verified 02/09/25 11:00) DYSPNEA cimetidine (From TAGAMET) Allergy (Intermediate, Verified 02/09/25 11:00) VOMITING codeine (CODEINE) Allergy (Intermediate, Verified 02/09/25 11:00) N/V Penicillins (PENICILLINS) Allergy (Intermediate, Verified 02/09/25 11:00) N/V penicillin V Allergy (Mild, Verified 02/09/25 11:00) Unknown alendronate sodium (ALENDRONATE SODIUM) Allergy (Unknown, Verified 02/09/25 11:00) UNKNOWN Codeine Phosphate Allergy (Mild, Uncoded 12/14/24 13:41) Unknown HPI Comments Details: Lissett is back in my office to report yet another problem. She reports that because she was weak in her right hip joint she twisted her right ankle joint. She was given a brace to wear and she also was given physical therapy exercises at home to do at least 2 times a day. She unfortunately does not perform her exercises. And conversation today I stressed up the importance of physical therapy for her ankle. There were no issues of her baclofen prescription discussed with her. Next appointment in 2 months. Prior: complains on pain in the lateral surface of the left hip left lower extremity, she reported that her pain started on 09/05/2024. She slipped and fell on water and debrison the floor. The area where she fell was area under ownership of a chirch and now the patient is suinf this chirch for undisclosed amount of money and damages. She broke her hip and she was performed ORIF of the left hip. She regained her ability to walk however the pain is continuous for the past 3 months. she is taking Tylenol and Advil to help her pain. She had extensive physical therapy, physical therapy did not demonstrate any improvement. She had images appropriately performed demonstrating normal positioned of the prosthesis. Review of Systems Const All systems reviewed & are unremarkable except as noted in HPI and below ENT Reports Normal hearing present Neuro Reports Normal hearing present, Denies Abnormal speech present, Denies confusion and Denies Sensory deficit (Neuro) Psych Denies confusion Physical Exam Vital Signs: Last Vital Signs Pulse 78 02/09/25 10:57 Resp 16 02/09/25 10:57 BP 130/73 02/09/25 10:57 Pulse Ox 96 02/09/25 10:57 Oxygen Delivery Method Room Air 02/09/25 10:57 BMI result Body Mass Index 23.8 Const General: no acute distress; No confusion Orientation/consciousness: patient oriented x3 and No confusion Eyes General: appearance normal, both eyes and all related structures Pupils: Equal, round and reactive pupils present EOM: EOMs intact bilaterally Neck Neck: Yes full ROM Chest Chest palpation & inspection: normal inspection of the chest Resp Effort & Inspection: normal respiratory effort, able to speak in complete sentences, normal respiratory pattern, no audible wheezes and no cough Cardio Jugular venous distension: no JVD GI Inspection: Yes normal to inspection Neuro General: patient oriented x3, gait normal and No confusion Cranial nerves: Yes CN's II-XII intact bilaterally, Yes Equal, round and reactive pupils present, Yes Normal hearing present and Yes Ability to bilaterally elevate shoulders present Speech: No Abnormal speech present Gait exam (Neuro): Normal gait present Motor exam (neuro): 5/5 motor strength present throughout Sensory Exam: No Sensory deficit (Neuro) Extrem Other: There are 2 small scars on the lateral surface of the right hip both of the scar is a very small no more than 3 cm long, there is no signs of inflammation and no pathological discharge. Range of motion of the right hip is limited compared to the left hip joint. There is a brace on the right ankle of the patient, the right ankle slightly more edematous than the left 1. General: No pedal edema Psych Speech and movement: Normal speech and movement present Affect: normal affect Attitude: cooperative Thought process: Normal thought process present Thought content: Normal thought content present Insight: Good insight present (Psych) Judgement: Good judgement present (Psych) Assessment & Plan Assessment & Plan (1) Osteoarthritis of right hip: Code(s): M16.11 - Unilateral primary osteoarthritis, right hip Category: Medical (2) Right hip pain: Code(s): M25.551 - Pain in right hip Category: Medical Plan I offered this patient to perform intra-articular hip steroid injection presuming that her condition is coming from arthritis of the right hip joint. Patient adamantly refused. She tried tramadol in the past and the tramadol being minimal doses and mild opioid gave her already mental status changes which would prevent continuation of this medication and any other opioid medications. I prescribes her baclofen 5 mg b.i.d. for her she denies side effects but reports medication minimally effective. We will increase it to 5 mg t.i.d. and allow her to take 2 pills at night. She came today with a report of injuring right ankle. See discussion as above. I stressed out the importance of physical therapy which was given to her upon discharge from the hospital when she injured her ankle. I will see her in 2 months, I recommended her to do physical therapy at least 2 times a day. Patient Instructions: I hereby testify that I spent 30 minutes in conversation with this patient as well as planning her care and organizing this note. Coding Level of Care Code Est Pt Level 4 (27845) Diagnoses Osteoarthritis of right hip M16.11 Right hip pain M25.551
[2025-02-09 10:57] VITALS: BP 130/73; PULSE 78; RESP 16; O2SAT 96; BMI 23.8
--- OUTSIDE RECORDS SUMMARY | 2025-02-09 13:03 | XMS_ITS | Clinical Summary ---
Author Organization [facility] Address [address] [place] [address] Care Team Providers Care Rn Spine Name Role Phone Lee Sanabria MD Primary Care Provider [phone] Allergies Active Allergy Reactions Criticality Noted Date [...] Advance Directives For more information, please contact: [phone] Latest Code Status on File Code Status Date Activated Date Inactivated Comments Full Code 10/18/2023 9:14 PM 11/02/2023 10:44 PM This code status was ascertained in the following way: per living will or healthcare instructions . Care Teams Rn Spine Relationship Specialty Start Date End Date Lee Sanabria MD PCP - General Internal Medicine 10/18/23
--- OUTSIDE RECORDS SUMMARY | 2025-02-09 13:03 | XMS_ITS | Encounter Summary ---
Author Organization [facility] Address [address] [place] [address] Care Team Providers Care Nuclear Auxiliary Operator Name Role Phone Lee Sanabria MD Primary Care Provider [phone] Encounter Details Date Type Department Care Team (Late st Contact Info) Description 09/15/2024 Lab Requisition [facility] - Main Lab [address] [facility] [place] [phone] Wyatt Otero MD [address] [place] [address] [id number] Anemia, unspecified Social History Tobacco Use Types [...] do you feel lonely or isolated from ose around you? Rarely 03/09/2024 Food Risk [...] for your loved ones. For example, child welfare consultant or elderly care for an older adult? [...] Date Recorded What is your living situation? Unrecognized valu e 03/09/2024 Interpersonal Safety Answer Date Record ed Physical Abuse Unrecognized value 09/06/2024 Verbal Abuse Unrecognized value 09/06/2024 Comments No Sex and Gender Information [...] 2:00 PM EST Office Visit Adult Medicine [facility] [address] [place], [place] [phone] Kinga Gardner NP [address] [place], [place] 04/25/2025 2:15 PM EST Office Visit General Surgery - [address] [place] [address] Michelle Gallego MD [address] [place] [phone] documented as of this encounter Procedures Procedure Name Priority Date/Time Associated Diagnosis Comments COMPLETE BLOOD COUNT Routine 09/15/2024 5:17 AM EDT Anemia, unspecified COMPREHENSIVE METABOLIC PANEL Routine 09/15/2024 5:17 AM EDT Anemia, unspecified documented in this encounter Results * (ABNORMAL) Comprehensive metabolic panel (09/15/2024 5:17 AM EDT) Sodium 134 133 - 145 mmol/L LAB CHEMISTRY METHOD 09/15/2024 10:[address] [facility] Potassium 4.2 3.5 - 5.5 mmol/L LAB CHEMISTRY METHOD 09/15/2024 10:[address] [facility] Chloride 100 96 - 110 mmol/L LAB CHEMISTRY METHOD 09/15/2024 10:[address] [facility] CO2 27 21 - 32 mmol/L LAB CHEMISTRY METHOD 09/15/2024 10:[address] [facility] Anion Gap 7 3 - 11 LAB CHEMISTRY METHOD 09/15/2024 10:[address] [facility] Glucose 70 70 - 100 mg/dL LAB CHEMISTRY METHOD 09/15/2024 10:[address] [facility] BUN 18 5 - 25 mg/dL LAB CHEMISTRY METHOD 09/15/2024 10:[address] [facility] Creatinine 0.62 0.50 - 1.10 mg/dL LAB CHEMISTRY METHOD 09/15/2024 10:[address] [facility] eGFR 91 >=60 mL/min/1. 73m2 LAB CHEMISTRY METHOD 09/15/2024 10:[address] [facility] Comment:Calculation based on the Chronic Kidney Disease Epidemiology Collaboration (CKD-EPI) equation refit without adjustment for race. BUN/Creatinine Ratio 29.0 LAB CHEMISTRY METHOD 09/15/2024 10:[address] [facility] Calcium 9.0 8.5 - 10.5 mg/dL LAB CHEMISTRY METHOD 09/15/2024 10:[address] [facility] AST (SGOT) 20 10 - 42 unit/L LAB CHEMISTRY METHOD 09/15/2024 10:53 AM EDT [facility] ALT (SGPT) 16 10 - 60 unit/L LAB CHEMISTRY METHOD 09/15/2024 10:53 AM EDT [facility] Alkaline Phosphatase 96 42 - 121 unit/L LAB CHEMISTRY METHOD 09/15/2024 10:53 AM T [facility] Total Protein 5.9(L) 6.0 - 8.0 g/dL LAB CHEMISTRY METHOD 09/15/2024 10:53 AM EDT [facility] Albumin 2.8(L) 3.2 - 5.0 g/dL LAB CHEMISTRY METHOD 09/15/2024 10:[address] [facility] Total Bilirubin 0.5 0.0 - 1.4 mg/dL LAB CHEMISTRY METHOD 09/15/2024 10:[address] [facility] Blood Venous blood specimen / Unknown Venipuncture / Unknown 09/15/2024 5:17 AM EDT 09/15/2024 9:26 AM EDT Wyatt Otero MD LAB BLOOD ORDERABLES Final Result [facility] [address] [place] [address], * (ABNORMAL) Complete blood count (09/15/2024 5:17 AM EDT) WBC 9.9 4.8 - 10.8 K/mcL LAB HEMETOLOGY METHOD 09/15/2024 10:28 AM EDT [facility] RBC 3.30(L) 3.80 - 4.80 M/mcL LAB HEMETOLOGY METHOD 09/15/2024 10:28 AM EDT [facility] Hemoglobin 9.1(L) 11.5 - 16.0 g/dL LAB HEMETOLOGY METHOD 09/15/2024 10:[address] [facility] Hematocrit 29.7(L) 35.0 - 47.0 % LAB HEMETOLOGY METHOD 09/15/2024 10:[address] [facility] MCV 89.5 79.0 - 98.0 FL LAB HEMETOLOGY METHOD 09/15/2024 10:[address] [facility] MCH 27.4 27.0 - 32.0 pcg LAB HEMETOLOGY METHOD 09/15/2024 10:[address] [facility] MCHC 30.6(L) 32.0 - 37.0 g/dL LAB HEMETOLOGY METHOD 09/15/2024 10:[address] [facility] RDW 14.9 11.0 - 15.0 % LAB HEMETOLOGY METHOD 09/15/2024 10:[address] [facility] Platelets 546(H) 130 - 400 K/mcL LAB HEMETOLOGY METHOD 09/15/2024 10:[address] [facility] MPV 9.2 7.0 - 11.0 FL LAB HEMETOLOGY METHOD 09/15/2024 10:[address] [facility] NRBC 0.0 <1.0 % LAB HEMETOLOGY METHOD 09/15/2024 10:[address] [facility] NRBC Absolute 0.00 <0.10 K/mcL LAB HEMETOLOGY METHOD 09/15/2024 10:[address] [facility] Blood Venous blood specimen / Unknown Venipuncture / Unknown 09/15/2024 5:17 AM EDT 09/15/2024 9:26 AM EDT us Wyatt Otero MD LAB BLOOD ORDERABLES Final Result [facility] [address] [place] [address], documented in this encounter Visit Diagnoses Diagnosis Anemia, unspecified documented in this encounter Additional Health Concerns Assessment Noted Time PHQ-9 Depression Total Score: 14 024 9:05 AM EST documented as of this encounter Care Teams Nuclear Auxiliary Operator Relationship Specialty Start Date End Date Lee Sanabria MD [address] [place] [address] PCP - General 11/26/10 documented as of this encounter
--- OUTSIDE RECORDS SUMMARY | 2025-02-09 13:03 | XMS_ITS | Encounter Summary ---
Author Organization [facility] Address [address] [place] [address] Care Team Providers Care Thread Inspector Name Role Phone Lee Sanabria MD Primary Care Provider [phone] Encounter Details Date Type Department Care Team (Late st Contact Info) Description 09/21/[address] [facility] - Main Lab [address] [facility] [place] [phone] Wyatt Otero MD [address] [place] [address] [phone] Anemia, unspecified Social History Tobacco Use Types [...] ed Within the last 3 months, itz arngel many times did you visit the emergency [...] your loved ones. For example, child care lead teacher or elderly care for an older adult? [...] 2:00 PM EST Office Visit Adult Medicine [facility] [address] [place], [place] [phone] Kinga Gardner, SINDY [address] [place], [place] 04/25/2025 2:15 PM EST Office Visit General Surgery - [address] [place] [address] Michelle Gallego MD [address] [place] [phone] documented as of this encounter Visit Diagnoses Diagnosis Anemia, unspecified documented in this encounter Additional Health Concerns Assessment Noted Time PHQ-9 Depression Total Score: 14 024 9:05 AM EST documented as of this encounter Care Teams Thread Inspector Relationship Specialty Start Date End Date Lee Sanabria MD [address] [place] [address] PCP - General 11/26/10 documented as of this encounter
--- OUTSIDE RECORDS SUMMARY | 2025-02-09 13:03 | XMS_ITS | Clinical Summary ---
Author Organization [address] Address [address] [place] [address] Phone Care Team Providers Care Technical Services Specialist Name Role Phone Lee Sanabria MD Primary Care Provider [phone] Allergies Active Allergy Reactions Criticality Noted Date [...] by mouth 2 (two) times a day. 4 Active fluticasone propion-salmete roL (ADVAIR HFA) 115-21 mcg/actuation inhaler Inhale 2 puffs into the lungs daily. 3 Active albuterol HFA (PROAIR HFA ; PROVENTIL HFA ; VENTOLIN HFA) 90 mcg/actuation inhaler Inhale 2 Puffs into the lungs as needed for Cough or Wheezing. 2 Active psyllium (METAMUCIL) 3.4 gram packet Take 1 packet by mouth 1 (one) time each day. Active atorvastatin (LIPITOR) 80 mg tablet Take 1 tablet (80 mg total) by mouth 1 (one) time each day. 90 tablet 1 5 Active montelukast (SINGULAIR) 10 mg tablet Take 1 tablet (10 mg total) by mouth 1 (one) time each day. 90 tablet 1 5 Active lidocaine 4 % patch Apply 2 patches topically 1 (one) time each day. 5 Active senna (SENOKOT) 8.6 mg tablet Take 2 tablets (17.2 mg total) by mouth at bedtime. 5 09/12/19 26 Active aspirin 81 mg EC tablet Take 1 tablet (81 mg total) by mouth 2 (two) times a day. For DVT prophylaxis. Take 81 mg orally twice a day for 6 weeks after surgery and then 81 mg daily indefinitely. 5 09/13/19 26 Active Vitamin D3 50 mcg (2,000 unit) tablet TAKE 1 TABLET (2,000 UNITS TOTAL) BY MOUTH ONCE DAILY 90 tablet 1 5 Active amLODIPine (NORVASC) 2.5 mg tablet TAKE 1 TABLET BY MOUTH EVERY DAY 90 tablet 1 5 Active omeprazole (PriLOSEC) [address] capsule TAKE 1 CAPSULE BY MOUTH EVERY DAY 90 capsule 1 5 Active acetaminophen (TYLENOL) 325 mg tablet Take 1 tablet (325 mg total) by mouth every 4 (four) hours if needed. Active magnesium oxide (MAG-OX) 400 mg magnesium tablet Take 1 tablet (400 mg total) by mouth 1 (one) time each day. 90 tablet 1 5 Active magnesium oxide (MAG-OX) 400 mg magnesium tablet Take 1 tablet (400 mg total) by mouth 1 (one) time each day. 01/19/20 25 Discontinu ed(Reorder ) Active Problems Problem Noted Date Diagnosed Date [...] by her GI doctor Dr. Nye at [facility] to see [facility] General surgery. I do see record [...] will try again to get records from [facility] GI. Orders: Ambulatory referral to General Surgery; [...] record once available. Seronegative rheumatoid arth ritis ([facility] V24, [facility] V28) 03/01/2024 Assessment & Plan (03/02/2024 9:35 [...] Encounters Date Type Department Care Team Description 02/02/2025 12:12 PM EDT - 02/02/2025 1:10 PM EDT Emergency [facility] Emergency [address] [place] [address] Tyrone Adhikari MD Sprain of right ankle, initial encounter (Primary Dx) Discharge Disposition: Home or Self Care 12/30/2024 Telephone Adult Medicine [address] [phone] Lee Sanabria MD 12/29/2024 7:47 AM EDT - 12/29/2024 11:59 PM EDT Hospital Encounter [facility] Ortho Xray [address] [place] [address] Pain Discharge Disposition: Home or Self Care 12/29/2024 7:46 AM EDT - 12/29/2024 11:59 PM EDT Hospital Encounter [facility] Ortho Xray [address] [place] [address] Pain Discharge Disposition: Home or Self Care 12/22/2024 Telephone Adult Medicine [address] [phone] Kinga Gardner NP 12/20/2024 Telephone Adult Medicine [address] [phone] Lee Sanabria MD 11/28/2024 2:00 PM EDT Office Visit Adult [address] [phone] Kinga Gardner NP S/P right hip fracture (Primary Dx); Accidental fall, subsequent encounter; Chronic pain of left knee; Gallbladder anomaly; Elevated TSH 11/23/2024 Telephone Adult Medicine [address] [phone] Mary Morel [place] 11/21/2024 9:05 AM EDT - 11/21/2024 11:59 PM EDT Hospital Encounter [facility] Ortho Xray [address] [place] [address] Pain Discharge Disposition: Home or Self Care 11/21/2024 7:50 AM EDT - 11/21/2024 11:59 PM EDT Hospital Encounter [facility] Ortho Xray [address] [place] [address] Pain Discharge Disposition: Home or Self Care from Last 3 Months Immunizations Immunization Administration Dates Next Due Influenza trivalent, 0.5mL [...] for your loved ones. 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 [...] Sign Reading Time Taken Comments Blood Pressure 123/83 02/02/2025 11:37 AM EDT Pulse 83 02/02/2025 11:37 AM EDT Temperature 36.6 C (97.9 F) 02/02/2025 11:37 AM EDT Respiratory Rate 18 02/02/2025 11:37 AM EDT Oxygen Saturation 100% 02/02/2025 11:37 AM EDT Inhaled Oxygen Concentration - - Weight 55.8 kg (123 lb) 02/02/2025 11:37 AM EDT Height 157.5 cm (5' 2 ) 02/02/2025 11:37 AM EDT Body Mass Index 22.5 02/02/2025 11:37 AM EDT Plan of Treatment Upcoming Encounters Date Type Department Care Team (Late st Contact Info) Description 04/10/2025 2:00 PM EST Office Visit Adult Medicine [facility] [address] [place], [place] [phone] Kinga Gardner NP [address] [place], [place] 04/25/2025 2:15 PM EST Office Visit General Surgery - [address] [place] [address] Michelle Gallego MD [address] [place] [phone] Health Maintenance Due Date Last Done Comments Zoster Vaccines (2 of 2) 05/17/2019 03/22/2019 RSV Immunization Adult Patients (1 - 1-dose 75+ series) 2020 Osteoporosis Screening (Bone Density Screening) 03/15/2022 Depression Screening 04/06/2024 03/31/2024 COVID-19 Vaccine ( - season) 2024 01/18/2021, [...] this topic Medical Devices Implanted Type Area Idea Man Device Identifier Shelf Expiration Date Model / Serial / Lot Nail Trochant [id number] [employer]deg [employer] - Sn/A - [id number] Implanted:Qty: 1 on 09/07/2024 by Iván Hassan MD at [facility] Internal and External Fixation Right: Hip [facility] 1176.6034 S / N/A / [id number] Screw Lag 10.5x90mm Ti [employer] Troch Nail Sys - Sn/A - [id number] Implanted:Qty: 1 on 09/07/2024 by Iván Hassan MD at [facility] Internal and External Fixation Right: Hip [employer] 1176.0090 S / N/A / [id number] K-Wire Thrd [employer]ill [employer] [id number] - Sn/A - [id number] Implanted:Qty: 1 on 09/07/2024 by Iván Hassan MD at [facility] Internal and External Fixation Right: Hip [employer] 6176.0021 S / N/A / N/A Procedures Procedure Name Priority Date/Time Associated Diagnosis Comments XR ANKLE 3+ VIEWS RIGHT STAT 02/02/2025 12:09 PM EDT XR FEMUR 2+ VIEWS RIGHT Routine 12/29/2024 9:08 AM EDT Pain XR HIP 2-3 VIEWS RIGHT Routine 12/29/2024 9:08 AM EDT Pain XR FEMUR 2+ VIEWS RIGHT Routine 11/21/2024 9:12 AM EDT Pain XR HIP 2-3 VIEWS RIGHT Routine 11/21/2024 9:12 AM EDT Pain COMPREHENSIVE METABOLIC PANEL Routine 09/15/2024 5:17 AM EDT Anemia, unspecified LIPID PANEL WITH REFLEX TO DIRECT LDL Routine 03/21/2024 12:27 PM EST HTN (hypertension), benign Hyperlipidemia, unspecified hyperlipidemia type Thyroid nodule Seronegative rheumatoid arthritis (CMS/HCC V24, CMS/HCC V28) Asthma, unspecified asthma severity, unspecified whether complicated, unspecified whether persistent FALLS RISK ASSESSMENT Routine 06/08/2023 HEPATITIS C SCREENING Routine 03/08/2015 from Last 3 Months or Most Recently Relevant to Health Maintenance Results * XR Ankle 3+ Views Right (02/02/2025 12:09 PM EDT) Anatomical Region Laterality Modality Lower Extremities, Ankle Right Radiogr aphic Imaging 02/02/2025 12:1 1 PM EDT Impressions 02/02/2025 12:14 PM EDT No acute findings. Bony demineralization. 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 Code 84283 -------- FINAL REPORT -------- Dictated By: Ludwin Pleitez Dictated Date: 02/02/2025 12:11 ET Assigned Physician: Ludwin Pleitez Reviewed and Electronically Signed By: Ludwin Pleitez Signed Date: 02/02/2025 12:14 ET Workstation ID: [id number] Transcribed By: Self Edit Transcribed Date: 02/02/2025 12:11 ET Narrative 02/02/2025 12:14 PM EDT HISTORY: The patient is a 79-year-old female with right ankle pain and swelling. No history of trauma is provided. FINDINGS: AP, lateral, and oblique views of the right ankle are obtained. The study demonstrates bony demineralization. There is no fracture or dislocation. Small osteophytes arise from the dorsal aspect of the articulation of the medial cuneiform with the first metatarsal consistent with mild osteoarthritis. A small inferior calcaneal osteophyte is incidentally noted. Atherosclerotic arterial calcification is noted. Procedure Note Ludwin Pleitez MD - 02/02/2025 HISTORY: The patient is a 79-year-old female with right ankle pain andswelling. No history of trauma is provided. FINDINGS: AP, lateral, and oblique views of the right ankle are obtained.The study demonstrates bony demineralization. There is no fracture ordislocation. Small osteophytes arise from the dorsal aspect of thearticulation of the medial cuneiform with the first metatarsal consistentwith mild osteoarthritis. A small inferior calcaneal osteophyte isincidentally noted. Atherosclerotic arterial calcification is noted. IMPRESSION: No acute findings. Bony demineralization. There is mild osteoarthritis atthe articulation of the medial cuneiform with the first metatarsal. Code 56551 -------- FINAL REPORT -------- Dictated By: Ludwin Pleitez Dictated Date: 02/02/2025 12:11 ET Assigned Physician: Ludwin Pleitez Reviewed and Electronically Signed By: Ludwin Pleitez Signed Date: 02/02/2025 12:14 ET Workstation ID: [id number] Transcribed By: Self Edit Transcribed Date: 02/02/2025 12:11 ET us Tyrone Adhikari MD IMG XR PROCEDURES Final Res ult * XR Femur 2+ Views Right (12/29/2024 9:08 AM EDT) Only the most recent of2 resultswithin the time period is included. Narrative RIS PACS/VR - 12/29/2024 9:08 AM EDT This order has been auto-finalized and does not contain a result. us Dominic Orlando MD IMG XR PROCEDURES Final Result Performing Organization Address City/[facility] Co de Phone Number RIS PACS/VR * XR Hip 2-3 Views Right (12/29/2024 9:08 AM EDT) Only the most recent of2 resultswithin the time period is included. Narrative RIS PACS/VR - 12/29/2024 9:08 AM EDT This order has been auto-finalized and does not contain a result. us Dominic Orlando MD IMG XR PROCEDURES Final Result Performing Organization Address [facility] Co de Phone Number RIS PACS/VR * (ABNORMAL) Comprehensive metabolic panel (09/15/2024 5:17 AM EDT) Sodium 134 133 - 145 mmol/L LAB CHEMISTRY METHOD 09/15/2024 10:53 AM EDT [facility] Potassium 4.2 3.5 - 5.5 mmol/L LAB CHEMISTRY METHOD 09/15/2024 10:53 AM EDT [facility] Chloride 100 96 - 110 mmol/L LAB CHEMISTRY METHOD 09/15/2024 10:53 AM EDT [facility] CO2 27 21 - 32 mmol/L LAB CHEMISTRY METHOD 09/15/2024 10:53 AM [facility] Anion Gap 7 3 - 11 LAB CHEMISTRY METHOD 09/15/2024 10:53 AM [facility] Glucose 70 70 - 100 mg/dL LAB CHEMISTRY METHOD 09/15/2024 10:53 AM [facility] BUN 18 5 - 25 mg/dL LAB CHEMISTRY METHOD 09/15/2024 10:53 AM [facility] Creatinine 0.62 0.50 - 1.10 mg/dL LAB CHEMISTRY METHOD 09/15/2024 10:53 AM [facility] eGFR 91 >=60 mL/min/1. 73m2 LAB CHEMISTRY METHOD 09/15/2024 10:53 AM [facility] Comment:Calculation based on the Chronic Kidney Disease Epidemiology Collaboration (CKD-EPI) equation refit without adjustment for race. BUN/Creatinine Ratio 29.0 LAB CHEMISTRY METHOD 09/15/2024 10:53 AM [facility] Calcium 9.0 8.5 - 10.5 mg/dL LAB CHEMISTRY METHOD 09/15/2024 10:53 AM [facility] AST (SGOT) 20 10 - 42 unit/L LAB CHEMISTRY METHOD 09/15/2024 10:53 AM [facility] ALT (SGPT) 16 10 - 60 unit/L LAB CHEMISTRY METHOD 09/15/2024 10:53 AM [facility] Alkaline Phosphatase 96 42 - 121 unit/L LAB CHEMISTRY METHOD 09/15/2024 10:53 AM [facility] Total Protein 5.9(L) 6.0 - 8.0 g/dL LAB CHEMISTRY METHOD 09/15/2024 10:53 AM [facility] Albumin 2.8(L) 3.2 - 5.0 g/dL LAB CHEMISTRY METHOD 09/15/2024 10:53 AM [facility] Total Bilirubin 0.5 0.0 - 1.4 mg/dL LAB CHEMISTRY METHOD 09/15/2024 10:53 AM EDT [facility] Blood Venous blood specimen / Unknown Venipuncture / Unknown 09/15/2024 5:17 AM EDT 09/15/2024 9:26 AM EDT Wyatt Otero MD LAB BLOOD ORDERABLES Final Result [facility] [address] [place] [address], [place] [phone] * Lipid panel with reflex to direct LDL (03/21/2024 12:27 PM EST) Cholesterol 177 0 - 200 mg/dL LAB CHEMISTRY METHOD 03/21/2024 7:30 PM EST [facility] Triglycerides 117 0 - 150 mg/dL LAB CHEMISTRY METHOD 03/21/2024 7:30 PM EST [facility] HDL 58 >=40 mg/dL LAB CHEMISTRY METHOD 03/21/2024 7:30 PM EST [facility] LDL Calculated 96 0 - 100 mg/dL LAB CHEMISTRY METHOD 03/21/2024 7:30 PM EST [facility] VLDL Cholesterol Parminder 23.4 mg/dL LAB CHEMISTRY METHOD 03/21/2024 7:30 PM EST [facility] Non HDL Chol. (LDL+VLDL) 119 <145 mg/dL LAB CHEMISTRY METHOD 03/21/2024 7:30 PM EST [facility] Chol/HDL Ratio 3.1 0.0 - 4.4 LAB CHEMISTRY METHOD 03/21/2024 7:30 PM EST [facility] Blood Venous blood specimen / Unknown Venipuncture / Unknown 03/21/2024 12:27 PM EST 03/21/2024 12:27 PM EST Prasanna GOLDEN LAB BLOOD ORDERABLES Fin al Result [facility] [address] [place] [address], * Falls Risk Assessment (06/08/2023) Falls Risk Assessment abstractedabstracted us Historical Provider HEALTH MAINTENANCE Final Result * Hepatitis C Screening (03/08/2015) Hepatitis C Screening abstracted us Historical Provider MD HEALTH MAINTENANCE Final Result from Last 3 Months or Most Recently Relevant to Health Maintenance Insurance [employer] MEDICARE ADVANTAGE [place] GENER[place] MEDICARE ADVANT[place] Advance Directives Documents on File Type Date Recorded Patient Jewelry Designer Expl anation Advance Directives and Living Will 09/09/2024 3:05 PM [facility] Pr oxy * Full Code - Default [...] Auguste Daughter First Alternate Health Care Agent [email or web address] Jolene Auguste Daughter Second Alternate Health Care Agent Care Teams Technical Services Specialist Relationship Specialty Start Date End Date Lee Sanabria MD [address] [place] [id number] PCP - General 11/26/10
--- OUTSIDE RECORDS SUMMARY | 2025-02-09 13:03 | XMS_ITS ---
Author Name [facility] Organization Unknown Results Test Name/Text Value Interpretation Date Range Source MAGNESIUM SERPL [facility] 1.7 mg/dL Normal 11/02/2023 1.7 - 2. 8 [facility] RBC AUTO [facility] 34.0 g/dL Normal 11/02/2023 32 - 36 [facility] PMV BLD AUTO 7.2 fL Below low normal 11/02/2023 7.4 - 11. 4 [facility] MCV RBC AUTO 83.9 fL Normal 11/02/2023 78 - 100 [facility] PLATELET NO. BLD AUTO 804.0 K/uL Above high normal 11/02/2023 150 - 450 [facility] MCH RBC QN AUTO 28.5 pg Normal 11/02/2023 25 - 33 [facility] RDW RBC AUTO RTO 15.3 % Normal 11/02/2023 12.1 - 16.2 [facility] RBC NO. BLD AUTO 3.84 M/uL Below low normal 11/02/2023 4.2 - 5.4 [facility] WBC NO. BLD AUTO 9.1 K/uL Normal 11/02/2023 4 - 10.5 [facility] HGB BLD [facility] 10.9 g/dL Below low normal 11/02/2023 12.5 - 16 [facility] HCT VFR BLD AUTO 32.2 % Below low normal 11/02/2023 37 - 47 [facility] ALT SERPL [facility] 20.0 U/L Normal 11/02/2023 7 - 52 [facility] ALBUMIN SERPL BCG [facility] 3.5 g/dL Normal 11/02/2023 3.5 - 5 [facility] ANION GAP SERPL SC[facility] 11.0 mmol/L Normal 11/02/2023 5 - 14 [facility] Glomerular filtration rate/1.73 sq M. predicted 88.0 Normal 11/02/2023 60 - [facility] CALCIUM SERPL [facility] 9.6 mg/dL Normal 11/02/2023 8.4 - 10.2 [facility] ALP SERPL-CCNC 205.0 U/L Above high normal 11/02/2023 34 - 1 04 [facility] POTASSIUM SERPL SC[facility] 4.2 mmol/L Normal 11/02/2023 3.5 - 5 .1 [facility] BILIRUB SERPL [facility] 0.6 mg/dL Normal 11/02/2023 0.3 - 1 [facility] HCO3 SER SCNC 20.0 mmol/L Below low normal 11/02/2023 24 - 3 2 [facility] GLUCOSE SERPL [facility] 102.0 mg/dL Normal 11/02/2023 70 - 199 [facility] CHLORIDE SERPL [facility] 99.0 mmol/L Normal 11/02/2023 98 - 10 7 [facility] SODIUM SERPL SC[facility] 130.0 mmol/L Below low normal 11/02/2023 1 35 - 145 [facility] CREAT SERPL [facility] 0.7 mg/dL Normal 11/02/2023 0.5 - 1 [facility] PROT SERPL [facility] 7.8 g/dL Normal 11/02/2023 6.4 - 8.5 [facility] AST SERPL [facility] 20.0 U/L Normal 11/02/2023 5 - 40 [facility] BUN SERPL [facility] 25.0 mg/dL Above high normal 11/02/2023 7 - 1 7 [facility] GLUCOSE BLDC GLUCOMTR MCNC 111.0 mg/dL Normal 11/02/2023 70 - 199 [facility] GLUCOSE BLDC GLUCOMTR MCNC 129.0 mg/dL Normal 11/01/2023 70 - 199 [facility] GLUCOSE BLDC GLUCOMTR MCNC 126.0 mg/dL Normal 10/31/2023 70 - 199 [facility] AST SERPL [facility] 28.0 U/L Normal 10/31/2023 5 - 40 [facility] Glomerular filtration rate/1.73 sq M. predicted 75.0 Normal 10/31/2023 60 - [facility] ALT SERPL [facility] 28.0 U/L Normal 10/31/2023 7 - 52 [facility] ALBUMIN SERPL BCG MCNC 3.3 g/dL Below low normal 10/31/2023 3.5 - 5 [facility] HCO3 SER SCNC 20.0 mmol/L Below low normal 10/31/2023 24 - 3 2 [facility] CHLORIDE SERPL SCNC 99.0 mmol/L Normal 10/31/2023 98 - 10 7 [facility] CALCIUM SERPL MCNC 9.3 mg/dL Normal 10/31/2023 8.4 - 10.2 [facility] BILIRUB SERPL MCNC 0.8 mg/dL Normal 10/31/2023 0.3 - 1 [facility] ANION GAP SERPL SCNC 11.0 mmol/L Normal 10/31/2023 5 - 14 [facility] CREAT SERPL MCNC 0.8 mg/dL Normal 10/31/2023 0.5 - 1 [facility] ALP SERPL-CCNC 220.0 U/L Above high normal 10/31/2023 34 - 1 04 [facility] SODIUM SERPL SCNC 130.0 mmol/L Below low normal 10/31/2023 1 35 - 145 [facility] GLUCOSE SERPL MCNC 96.0 mg/dL Normal 10/31/2023 70 - 199 [facility] POTASSIUM SERPL SCNC 4.6 mmol/L Normal 10/31/2023 3.5 - 5 .1 [facility] BUN SERPL MCNC 25.0 mg/dL Above high normal 10/31/2023 7 - 1 7 [facility] PROT SERPL MCNC 7.4 g/dL Normal 10/31/2023 6.4 - 8.5 [facility] LYMPHOCYTES NFR BLD AUTO 7.2 % Below low normal 10/31/2023 20 - 48 [facility] MONOCYTES NFR BLD AUTO 18.9 % Above high normal 10/31/2023 2 - 12 [facility] EOSINOPHIL NFR BLD AUTO 0.9 % Normal 10/31/2023 0 - 6 [facility] DIFFERENTIAL TYPE AUTOMATED Normal 10/31/2023 C [facility] NEUTROPHILS NFR BLD AUTO 72.2 % Normal 10/31/2023 44 - 74 [facility] NEUTROPHILS NO. BLD AUTO 7.5 K/uL Normal 10/31/2023 1.8 - 7.8 [facility] MONOCYTES NO. BLD AUTO 2.0 K/uL Above high normal 10/31/2023 0 - 0.8 [facility] BASOPHILS NFR BLD AUTO 0.8 % Normal 10/31/2023 0 - 2 [facility] LYMPHOCYTES NO. BLD AUTO 0.7 K/uL Below low normal 10/31/2023 1 - 3.2 [facility] EOSINOPHIL NO. BLD AUTO 0.1 K/uL Normal 10/31/2023 0 - 0.5 [facility] BASOPHILS IN BLOOD BY AUTOMATED COUNT 0.1 K/uL Normal 10/31/2023 0 - 0.2 [facility] HCT VFR BLD AUTO 31.2 % Below low normal 10/31/2023 37 - 47 [facility] PLATELET NO. BLD AUTO 676.0 K/uL Above high normal 10/31/2023 150 - 450 [facility] RBC NO. BLD AUTO 3.69 M/uL Below low normal 10/31/2023 4.2 - 5.4 [facility] RDW RBC AUTO RTO 15.7 % Normal 10/31/2023 12.1 - 16.2 [facility] HGB BLD [facility] 10.8 g/dL Below low normal 10/31/2023 12.5 - 16 [facility] MCHC RBC AUTO MCNC 34.7 g/dL Normal 10/31/2023 32 - 36 [facility] WBC NO. BLD AUTO 10.4 K/uL Normal 10/31/2023 4 - 10.5 [facility] PMV BLD AUTO 7.6 fL Normal 10/31/2023 7.4 - 11.4 [facility] MCV RBC AUTO 84.7 fL Normal 10/31/2023 78 - 100 [facility] M[facility] RBC QN AUTO 29.4 pg Normal 10/31/2023 25 - 33 [facility] PHOSPHATE SERPL MCNC 4.9 mg/dL Above high normal 10/31/2023 2.5 - 4.5 [facility] MAGNESIUM SERPL MCNC 1.8 mg/dL Normal 10/31/2023 1.7 - 2. 8 [facility] GLUCOSE BLDC GLUCOMTR MCNC 103.0 mg/dL Normal 10/31/2023 70 - 199 [facility] GLUCOSE BLDC GLUCOMTR MCNC 114.0 mg/dL Normal 10/31/2023 70 - 199 [facility] GLUCOSE BLDC GLUCOMTR MCNC 91.0 mg/dL Normal 10/30/2023 70 - 199 [facility] PMV BLD AUTO 7.6 fL Normal 10/30/2023 7.4 - 11.4 [facility] [place] RDW RBC AUTO RTO 16.3 % Above high normal 10/30/2023 12.1 - 16.2 [facility] MCV RBC AUTO 84.6 fL Normal 10/30/2023 78 - 100 [facility] DIFFERENTIAL TYPE AUTOMATED Normal 10/30/2023 C [facility] EOSINOPHIL NFR BLD AUTO 0.5 % Normal 10/30/2023 0 - 6 [facility] MCHC RBC AUTO MCNC 33.9 g/dL Normal 10/30/2023 32 - 36 [facility] PLATELET NO. BLD AUTO 668.0 K/uL Above high normal 10/30/2023 150 - 450 [facility] HCT VFR BLD AUTO 31.4 % Below low normal 10/30/2023 37 - 47 [facility] RBC NO. BLD AUTO 3.71 M/uL Below low normal 10/30/2023 4.2 - 5.4 [facility] BASOPHILS IN BLOOD BY AUTOMATED COUNT 0.1 K/uL Normal 10/30/2023 0 - 0.2 [facility] MCH RBC QN AUTO 28.7 pg Normal 10/30/2023 25 - 33 [facility] NEUTROPHILS NFR BLD AUTO 76.6 % Above high normal 10/30/2023 44 - 74 [facility] BASOPHILS NFR BLD AUTO 0.5 % Normal 10/30/2023 0 - 2 [facility] EOSINOPHIL NO. BLD AUTO 0.1 K/uL Normal 10/30/2023 0 - 0.5 [facility] HGB BLD MCNC 10.6 g/dL Below low normal 10/30/2023 12.5 - 16 [facility] NEUTROPHILS NO. BLD AUTO 9.1 K/uL Above high normal 10/30/2023 1.8 - 7.8 [facility] MONOCYTES NFR BLD AUTO 17.2 % Above high normal 10/30/2023 2 - 12 [facility] LYMPHOCYTES NO. BLD AUTO 0.6 K/uL Below low normal 10/30/2023 1 - 3.2 [facility] LYMPHOCYTES NFR BLD AUTO 5.2 % Below low normal 10/30/2023 20 - 48 [facility] MONOCYTES NO. BLD AUTO 2.0 K/uL Above high normal 10/30/2023 0 - 0.8 [facility] WBC NO. BLD AUTO 11.9 K/uL Above high normal 10/30/2023 4 - 10.5 [facility] HCO3 SER SCNC 20.0 mmol/L Below low normal 10/30/2023 24 - 3 2 [facility] CREAT SERPL MCNC 0.7 mg/dL Normal 10/30/2023 0.5 - 1 [facility] ALT SERPL [facility] 35.0 U/L Normal 10/30/2023 7 - 52 [facility] ALBUMIN SERPL BCG MCNC 3.5 g/dL Normal 10/30/2023 3.5 - 5 [facility] Glomerular filtration rate/1.73 sq M. predicted 88.0 Normal 10/30/2023 60 - [facility] GLUCOSE SERPL MCNC 91.0 mg/dL Normal 10/30/2023 70 - 199 [facility] PROT SERPL [facility]NC 7.3 g/dL Normal 10/30/2023 6.4 - 8.5 [facility] BILIRUB SERPL MCNC 0.9 mg/dL Normal 10/30/2023 0.3 - 1 [facility] CALCIUM SERPL MCNC 9.1 mg/dL Normal 10/30/2023 8.4 - 10.2 [facility] POTASSIUM SERPL SCNC 4.8 mmol/L Normal 10/30/2023 3.5 - 5 .1 [facility] BUN SERPL MCNC 22.0 mg/dL Above high normal 10/30/2023 7 - 1 7 [facility] SODIUM SERPL SCNC 132.0 mmol/L Below low normal 10/30/2023 1 35 - 145 [facility] ALP SERPL-CCNC 212.0 U/L Above high normal 10/30/2023 34 - 1 04 [facility] CHLORIDE SERPL SCNC 100.0 mmol/L Normal 10/30/2023 98 - 1 07 [facility] ANION GAP SERPL SCNC 12.0 mmol/L Normal 10/30/2023 5 - 14 [facility] AST SERPL [facility]NC 31.0 U/L Normal 10/30/2023 5 - 40 [facility] MAGNESIUM SERPL MCNC 1.7 mg/dL Normal 10/30/2023 1.7 - 2. 8 [facility] PHOSPHATE SERPL MCNC 4.2 mg/dL Normal 10/30/2023 2.5 - 4. 5 [facility] GLUCOSE BLDC GLUCOMTR MCNC 87.0 mg/dL Normal 10/30/2023 70 - 199 [facility] GLUCOSE BLDC GLUCOMTR MCNC 89.0 mg/dL Normal 10/30/2023 70 - 199 [facility] GLUCOSE BLDC GLUCOMTR MCNC 95.0 mg/dL Normal 10/29/2023 70 - 199 [facility] GLUCOSE BLDC GLUCOMTR MCNC 105.0 mg/dL Normal 10/29/2023 70 - 199 [facility] GLUCOSE BLDC GLUCOMTR MCNC 95.0 mg/dL Normal 10/29/2023 70 - 199 [facility] BASOPHILS NFR BLD AUTO 0.6 % Normal 10/29/2023 0 - 2 [facility] MONOCYTES NO. BLD AUTO 2.0 K/uL Above high normal 10/29/2023 0 - 0.8 [facility] EOSINOPHIL NFR BLD AUTO 0.5 % Normal 10/29/2023 0 - 6 [facility] LYMPHOCYTES NFR BLD AUTO 8.6 % Below low normal 10/29/2023 20 - 48 [facility] EOSINOPHIL NO. BLD AUTO 0.1 K/uL Normal 10/29/2023 0 - 0.5 [facility] LYMPHOCYTES NO. BLD AUTO 1.0 K/uL Normal 10/29/2023 1 - 3.2 [facility] DIFFERENTIAL TYPE AUTOMATED Normal 10/29/2023 C [facility] BASOPHILS IN BLOOD BY AUTOMATED COUNT 0.1 K/uL Normal 10/29/2023 0 - 0.2 [facility] MONOCYTES NFR BLD AUTO 17.0 % Above high normal 10/29/2023 2 - 12 [facility] NEUTROPHILS NFR BLD AUTO 73.3 % Normal 10/29/2023 44 - 74 [facility] NEUTROPHILS NO. BLD AUTO 8.6 K/uL Above high normal 10/29/2023 1.8 - 7.8 [facility] RDW RBC AUTO RTO 16.5 % Above high normal 10/29/2023 12.1 - 16.2 [facility] HCT VFR BLD AUTO 34.3 % Below low normal 10/29/2023 37 - 47 [facility] MCV RBC AUTO 84.4 fL Normal 10/29/2023 78 - 100 [facility] WBC NO. BLD AUTO 11.7 K/uL Above high normal 10/29/2023 4 - 10.5 [facility] HGB BLD [facility] 11.6 g/dL Below low normal 10/29/2023 12.5 - 16 [facility] MCH RBC QN AUTO 28.5 pg Normal 10/29/2023 25 - 33 [facility] MCHC RBC AUTO MCNC 33.7 g/dL Normal 10/29/2023 32 - 36 [facility] RBC NO. BLD AUTO 4.06 M/uL Below low normal 10/29/2023 4.2 - 5.4 [facility] PMV BLD AUTO 8.2 fL Normal 10/29/2023 7.4 - 11.4 [facility] PLATELET NO. BLD AUTO 548.0 K/uL Above high normal 10/29/2023 150 - 450 [facility] MAGNESIUM SERPL MCNC 1.8 mg/dL Normal 10/29/2023 1.7 - 2. 8 [facility] PHOSPHATE SERPL MCNC 4.9 mg/dL Above high normal 10/29/2023 2.5 - 4.5 [facility] ALP SERPL-CCNC 195.0 U/L Above high normal 10/29/2023 34 - 1 04 [facility] ALBUMIN SERPL BCG MCNC 3.5 g/dL Normal 10/29/2023 3.5 - 5 [facility] ALT SERPL CCNC 32.0 U/L Normal 10/29/2023 7 - 52 [facility] BILIRUB SERPL MCNC 0.8 mg/dL Normal 10/29/2023 0.3 - 1 [facility] PROT SERPL MCNC 7.2 g/dL Normal 10/29/2023 6.4 - 8.5 [facility] AST SERPL CCNC 27.0 U/L Normal 10/29/2023 5 - 40 [facility] Glomerular filtration rate/1.73 sq M. predicted 92.0 Normal 10/29/2023 60 - [facility] HCO3 SER SCNC 23.0 mmol/L Below low normal 10/29/2023 24 - 3 2 [facility] GLUCOSE SERPL MCNC 81.0 mg/dL Normal 10/29/2023 70 - 199 [facility] POTASSIUM SERPL SCNC 4.8 mmol/L Normal 10/29/2023 3.5 - 5 .1 [facility] CHLORIDE SERPL SCNC 97.0 mmol/L Below low normal 10/29/2023 98 - 107 [facility] ANION GAP SERPL SCNC 11.0 mmol/L Normal 10/29/2023 5 - 14 [facility] SODIUM SERPL SCNC 131.0 mmol/L Below low normal 10/29/2023 1 35 - 145 [facility] CALCIUM SERPL MCNC 8.7 mg/dL Normal 10/29/2023 8.4 - 10.2 [facility] CREAT SERPL MCNC 0.6 mg/dL Normal 10/29/2023 0.5 - 1 [facility] BUN SERPL MCNC 20.0 mg/dL Above high normal 10/29/2023 7 - 1 7 [facility] GLUCOSE BLDC GLUCOMTR MCNC 100.0 mg/dL Normal 10/29/2023 70 - 199 [facility] GLUCOSE BLDC GLUCOMTR MCNC 99.0 mg/dL Normal 10/28/2023 70 - 199 [facility] GLUCOSE BLDC GLUCOMTR MCNC 122.0 mg/dL Normal 10/28/2023 70 - 199 [facility] MAGNESIUM SERPL MCNC 1.7 mg/dL Normal 10/28/2023 1.7 - 2. 8 [facility] DIFFERENTIAL TYPE AUTOMATED Normal 10/28/2023 C [facility] MONOCYTES NFR BLD AUTO 15.9 % Above high normal 10/28/2023 2 - 12 [facility] BASOPHILS NFR BLD AUTO 1.3 % Normal 10/28/2023 0 - 2 [facility] LYMPHOCYTES NO. BLD AUTO 1.0 K/uL Normal 10/28/2023 1 - 3.2 [facility] MONOCYTES NO. BLD AUTO 2.2 K/uL Above high normal 10/28/2023 0 - 0.8 [facility] NEUTROPHILS NO. BLD AUTO 10.4 K/uL Above high normal 10/28/2023 1.8 - 7.8 [facility] LYMPHOCYTES NFR BLD AUTO 7.0 % Below low normal 10/28/2023 20 - 48 [facility] BASOPHILS IN BLOOD BY AUTOMATED COUNT 0.2 K/uL Normal 10/28/2023 0 - 0.2 [facility] NEUTROPHILS NFR BLD AUTO 75.1 % Above high normal 10/28/2023 44 - 74 [facility] EOSINOPHIL NO. BLD AUTO 0.1 K/uL Normal 10/28/2023 0 - 0.5 [facility] EOSINOPHIL NFR BLD AUTO 0.7 % Normal 10/28/2023 0 - 6 [facility] MCH RBC QN AUTO 27.8 pg Normal 10/28/2023 25 - 33 [facility] PLATELET NO. BLD AUTO 427.0 K/uL Normal 10/28/2023 150 - 450 [facility] MCHC RBC AUTO MCNC 32.8 g/dL Normal 10/28/2023 32 - 36 [facility] RDW RBC AUTO RTO 16.3 % Above high normal 10/28/2023 12.1 - 16.2 [facility] HGB BLD MCNC 10.8 g/dL Below low normal 10/28/2023 12.5 - 16 [facility] RBC NO. BLD AUTO 3.89 M/uL Below low normal 10/28/2023 4.2 - 5.4 [facility] PMV BLD AUTO 8.3 fL Normal 10/28/2023 7.4 - 11.4 [facility] WBC NO. BLD AUTO 13.9 K/uL Above high normal 10/28/2023 4 - 10.5 [facility] HCT VFR BLD AUTO 33.1 % Below low normal 10/28/2023 37 - 47 [facility] MCV RBC AUTO 84.9 fL Normal 10/28/2023 78 - 100 [facility] CALCIUM SERPL MCNC 8.6 mg/dL Normal 10/28/2023 8.4 - 10.2 [facility] ALBUMIN SERPL BCG MCNC 3.2 g/dL Below low normal 10/28/2023 3.5 - 5 [facility] BUN SERPL MCNC 21.0 mg/dL Above high normal 10/28/2023 7 - 1 7 [facility] AST SERPL CCNC 22.0 U/L Normal 10/28/2023 5 - 40 [facility] CHLORIDE SERPL SCNC 97.0 mmol/L Below low normal 10/28/2023 98 - 107 [facility] ALP SERPL-CCNC 167.0 U/L Above high normal 10/28/2023 34 - 1 04 [facility] ANION GAP SERPL SCNC 12.0 mmol/L Normal 10/28/2023 5 - 14 [facility] POTASSIUM SERPL SCNC 4.9 mmol/L Normal 10/28/2023 3.5 - 5 .1 [facility] Glomerular filtration rate/1.73 sq M. predicted 92.0 Normal 10/28/2023 60 - [facility] BILIRUB SERPL MCNC 0.7 mg/dL Normal 10/28/2023 0.3 - 1 [facility] PROT SERPL MCNC 6.8 g/dL Normal 10/28/2023 6.4 - 8.5 [facility] ALT SERPL CCNC 31.0 U/L Normal 10/28/2023 7 - 52 [facility] CREAT SERPL MCNC 0.6 mg/dL Normal 10/28/2023 0.5 - 1 [facility] GLUCOSE SERPL MCNC 115.0 mg/dL Normal 10/28/2023 70 - 199 [facility] SODIUM SERPL SCNC 130.0 mmol/L Below low normal 10/28/2023 1 35 - 145 [facility] HCO3 SER SCNC 21.0 mmol/L Below low normal 10/28/2023 24 - 3 2 [facility] GLUCOSE BLDC GLUCOMTR MCNC 126.0 mg/dL Normal 10/28/2023 70 - 199 [facility] GLUCOSE BLDC GLUCOMTR MCNC 139.0 mg/dL Normal 10/27/2023 70 - 199 [facility] GLUCOSE BLDC GLUCOMTR MCNC 114.0 mg/dL Normal 10/27/2023 70 - 199 [facility] VANCOMYCIN TROUGH SERPL MCNC 13.3 mcg/mL Normal 10/27/2023 10 - 20 [facility] MAGNESIUM SERPL MCNC 2.5 mg/dL Normal 10/27/2023 1.7 - 2. 8 [facility] MCV RBC AUTO 84.4 fL Normal 10/27/2023 78 - 100 [facility] RBC NO. BLD AUTO 3.87 M/uL Below low normal 10/27/2023 4.2 - 5.4 [facility] MCH RBC QN AUTO 28.3 pg Normal 10/27/2023 25 - 33 [facility] PMV BLD AUTO 8.0 fL Normal 10/27/2023 7.4 - 11.4 [facility] WBC NO. BLD AUTO 13.7 K/uL Above high normal 10/27/2023 4 - 10.5 [facility] HGB BLD MCNC 11.0 g/dL Below low normal 10/27/2023 12.5 - 16 [facility] MCHC RBC AUTO MCNC 33.5 g/dL Normal 10/27/2023 32 - 36 [facility] RDW RBC AUTO RTO 16.6 % Above high normal 10/27/2023 12.1 - 16.2 [facility] PLATELET NO. BLD AUTO 438.0 K/uL Normal 10/27/2023 150 - 450 [facility] HCT VFR BLD AUTO 32.7 % Below low normal 10/27/2023 37 - 47 [facility] SODIUM SERPL SCNC 134.0 mmol/L Below low normal 10/27/2023 1 35 - 145 [facility] CHLORIDE SERPL SCNC 99.0 mmol/L Normal 10/27/2023 98 - 10 7 [facility] HCO3 SER SCNC 25.0 mmol/L Normal 10/27/2023 24 - 32 [facility] ANION GAP SERPL SCNC 10.0 mmol/L Normal 10/27/2023 5 - 14 [facility] CREAT SERPL MCNC 0.6 mg/dL Normal 10/27/2023 0.5 - 1 [facility] BUN SERPL MCNC 19.0 mg/dL Above high normal 10/27/2023 7 - 1 7 [facility] Glomerular filtration rate/1.73 sq M. predicted 92.0 Normal 10/27/2023 60 - [facility] POTASSIUM SERPL SCNC 5.1 mmol/L Normal 10/27/2023 3.5 - 5 .1 [facility] GLUCOSE P FAST SERPL MCNC 116.0 mg/dL Above high normal 10/27/2023 70 - 99 [facility] CALCIUM SERPL MCNC 8.8 mg/dL Normal 10/27/2023 8.4 - 10.2 [facility] GLUCOSE BLDC GLUCOMTR MCNC 119.0 mg/dL Normal 10/27/2023 70 - 199 [facility] GLUCOSE BLDC GLUCOMTR MCNC 127.0 mg/dL Normal 10/27/2023 70 - 199 [facility] GLUCOSE BLDC GLUCOMTR MCNC 133.0 mg/dL Normal 10/26/2023 70 - 199 [facility] GLUCOSE BLDC GLUCOMTR MCNC 121.0 mg/dL Normal 10/26/2023 70 - 199 [facility] GLUCOSE BLDC GLUCOMTR MCNC 115.0 mg/dL Normal 10/26/2023 70 - 199 [facility] MAGNESIUM SERPL MCNC 1.7 mg/dL Normal 10/26/2023 1.7 - 2. 8 [facility] CHLORIDE SERPL SCNC 100.0 mmol/L Normal 10/26/2023 98 - 1 07 [facility] HCO3 SER SCNC 27.0 mmol/L Normal 10/26/2023 24 - 32 [facility] BUN SERPL MCNC 17.0 mg/dL Normal 10/26/2023 7 - 17 [facility] Glomerular filtration rate/1.73 sq M. predicted 96.0 Normal 10/26/2023 60 - [facility] POTASSIUM SERPL SCNC 4.4 mmol/L Normal 10/26/2023 3.5 - 5 .1 [facility] CALCIUM SERPL MCNC 8.0 mg/dL Below low normal 10/26/2023 8.4 - 10.2 [facility] GLUCOSE P FAST SERPL MCNC 106.0 mg/dL Above high normal 10/26/2023 70 - 99 [facility] ANION GAP SERPL SCNC 9.0 mmol/L Normal 10/26/2023 5 - 14 [facility] SODIUM SERPL SCNC 136.0 mmol/L Normal 10/26/2023 135 - 14 5 [facility] CREAT SERPL MCNC 0.5 mg/dL Normal 10/26/2023 0.5 - 1 [facility] WBC NO. BLD AUTO 13.5 K/uL Above high normal 10/26/2023 4 - 10.5 [facility] PLATELET NO. BLD AUTO 353.0 K/uL Normal 10/26/2023 150 - 450 [facility] HGB BLD MCNC 11.0 g/dL Below low normal 10/26/2023 12.5 - 16 [facility] MCHC RBC AUTO MCNC 32.9 g/dL Normal 10/26/2023 32 - 36 [facility] PMV BLD AUTO 8.4 fL Normal 10/26/2023 7.4 - 11.4 [facility] HCT VFR BLD AUTO 33.5 % Below low normal 10/26/2023 37 - 47 [facility] RDW RBC AUTO RTO 16.9 % Above high normal 10/26/2023 12.1 - 16.2 [facility] MCH RBC QN AUTO 27.9 pg Normal 10/26/2023 25 - 33 [facility] RBC NO. BLD AUTO 3.95 M/uL Below low normal 10/26/2023 4.2 - 5.4 [facility] MCV RBC AUTO 84.9 fL Normal 10/26/2023 78 - 100 [facility] GLUCOSE BLDC GLUCOMTR MCNC 140.0 mg/dL Normal 10/26/2023 70 - 199 [facility] VANCOMYCIN TROUGH SERPL MCNC 8.4 mcg/mL Below low normal 10/26/2023 10 - 20 [facility] GLUCOSE BLDC GLUCOMTR MCNC 83.0 mg/dL Normal 10/25/2023 70 - 199 [facility] GLUCOSE BLDC GLUCOMTR MCNC 103.0 mg/dL Normal 10/25/2023 70 - 199 [facility] ANION GAP SERPL SCNC 8.0 mmol/L Normal 10/25/2023 5 - 14 [facility] SODIUM SERPL SCNC 136.0 mmol/L Normal 10/25/2023 135 - 14 5 [facility] BUN SERPL MCNC 17.0 mg/dL Normal 10/25/2023 7 - 17 [facility] CREAT SERPL MCNC 0.5 mg/dL Normal 10/25/2023 0.5 - 1 [facility] AST SERPL CCNC 32.0 U/L Normal 10/25/2023 5 - 40 [facility] ALBUMIN SERPL BCG MCNC 2.8 g/dL Below low normal 10/25/2023 3.5 - 5 [facility] HCO3 SER SCNC 26.0 mmol/L Normal 10/25/2023 24 - 32 CTT HSFR[facility] PROT SERPL MCNC 5.6 g/dL Below low normal 10/25/2023 6.4 - 8.5 [facility] GLUCOSE P FAST SERPL MCNC 110.0 mg/dL Above high normal 10/25/2023 70 - 99 [facility] CHLORIDE SERPL SCNC 102.0 mmol/L Normal 10/25/2023 98 - 1 07 [facility] ALT SERPL CCNC 56.0 U/L Above high normal 10/25/2023 7 - 52 [facility] BILIRUB SERPL MCNC 1.0 mg/dL Normal 10/25/2023 0.3 - 1 [facility] CALCIUM SERPL MCNC 7.8 mg/dL Below low normal 10/25/2023 8.4 - 10.2 [facility] POTASSIUM SERPL SCNC 4.3 mmol/L Normal 10/25/2023 3.5 - 5 .1 [facility] ALP SERPL-CCNC 149.0 U/L Above high normal 10/25/2023 34 - 1 04 CTTHSFRAN Glomerular filtration rate/1.73 sq M. predicted 96.0 Normal 10/25/2023 60 - CT[facility] MAGNESIUM SERPL MCNC 2.0 mg/dL Normal 10/25/2023 1.7 - 2. 8 CT[facility]SFR[facility] PT TIME PPP 11.3 sec Normal 10/25/2023 10.5 - 13.3 [facility] [place] INR PPP 0.9 Normal 10/25/2023 0.8 - 1.1 [facility]THSFRAN RBC NO. BLD AUTO 3.85 M/uL Below low normal 10/25/2023 4.2 - 5.4 [facility] HGB BLD MCNC 10.8 g/dL Below low normal 10/25/2023 12.5 - 16 [facility] PLATELET NO. BLD AUTO 233.0 K/uL Normal 10/25/2023 150 - 450 [facility] PMV BLD AUTO 8.4 fL Normal 10/25/2023 7.4 - 11.4 [facility] [place] WBC NO. BLD AUTO 11.7 K/uL Above high normal 10/25/2023 4 - 10.5 [facility] RDW RBC AUTO RTO 17.0 % Above high normal 10/25/2023 12.1 - 16.2 [facility] MCV RBC AUTO 83.7 fL Normal 10/25/2023 78 - 100 CTTHSF RAN MCH RBC QN AUTO 28.1 pg Normal 10/25/2023 25 - 33 CTT HSFRAN HCT VFR BLD AUTO 32.2 % Below low normal 10/25/2023 37 - 47 [facility] MCHC RBC AUTO MCNC 33.5 g/dL Normal 10/25/2023 32 - 36 [facility] PHOSPHATE SERPL MCNC 3.6 mg/dL Normal 10/25/2023 2.5 - 4. 5 [facility] GLUCOSE BLDC GLUCOMTR MCNC 133.0 mg/dL Normal 10/25/2023 70 - 199 [facility] GLUCOSE BLDC GLUCOMTR MCNC 134.0 mg/dL Normal 10/24/2023 70 - 199 [facility] GLUCOSE BLDC GLUCOMTR MCNC 137.0 mg/dL Normal 10/24/2023 70 - 199 [facility] HCO3 SER SCNC 25.0 mmol/L Normal 10/24/2023 24 - 32 CTT HSFRAN GLUCOSE SERPL MCNC 135.0 mg/dL Normal 10/24/2023 70 - 199 [facility] CREAT SERPL MCNC 0.4 mg/dL Below low normal 10/24/2023 0.5 - 1 [facility] BUN SERPL MCNC 15.0 mg/dL Normal 10/24/2023 7 - 17 CTT HSFR[facility] SODIUM SERPL SCNC 141.0 mmol/L Normal 10/24/2023 135 - 14 5 [facility] CALCIUM SERPL MCNC 8.0 mg/dL Below low normal 10/24/2023 8.4 - 10.2 [facility]SFRAN Glomerular filtration rate/1.73 sq M. predicted 101.0 Normal 10/24/2023 60 - CT[facility] ANION GAP SERPL SCNC 8.0 mmol/L Normal 10/24/2023 5 - 14 [facility] POTASSIUM SERPL SCNC 3.9 mmol/L Normal 10/24/2023 3.5 - 5 .1 [facility] CHLORIDE SERPL SCNC 108.0 mmol/L Above high normal 98 - 107 [facility] PMV BLD AUTO 8.6 fL Normal 10/24/2023 7.4 - 11.4 [facility] [place] PLATELET NO. BLD AUTO 184.0 K/uL Normal 10/24/2023 150 - 450 [facility] RBC NO. BLD AUTO 4.15 M/uL Below low normal 10/24/2023 4.2 - 5.4 [facility] HCT VFR BLD AUTO 34.9 % Below low normal 10/24/2023 37 - 47 [facility] MCH RBC QN AUTO 28.4 pg Normal 10/24/2023 25 - 33 CTT HSFRAN WBC NO. BLD AUTO 12.3 K/uL Above high normal 10/24/2023 4 - 10.5 [facility] HGB BLD MCNC 11.8 g/dL Below low normal 10/24/2023 12.5 - 16 [facility] RDW RBC AUTO RTO 16.6 % Above high normal 10/24/2023 12.1 - 16.2 [facility] MCHC RBC AUTO MCNC 33.8 g/dL Normal 10/24/2023 32 - 36 [facility] MCV RBC AUTO 83.9 fL Normal 10/24/2023 78 - 100 [facility] RAN ALBUMIN SERPL BCG MCNC 3.0 g/dL Below low normal 10/24/2023 3.5 - 5 [facility] PROT SERPL MCNC 5.7 g/dL Below low normal 10/24/2023 6.4 - 8.5 [facility] ALBUMIN/GLOB SERPL MRTO 1.1 Normal 10/24/2023 [facility] ALT SERPL CCNC 66.0 U/L Above high normal 10/24/2023 7 - 52 [facility] BILIRUB DIRECT SERPL MCNC 0.8 mg/dL Above high normal 10/24/2023 0 - 0.2 [facility] ALP SERPL-CCNC 165.0 U/L Above high normal 10/24/2023 34 - 1 04 [facility] BILIRUB SERPL MCNC 1.7 mg/dL Above high normal 10/24/2023 0. 3 - 1 [facility] AST SERPL CCNC 37.0 U/L Normal 10/24/2023 5 - 40 [facility] SFRAN MAGNESIUM SERPL MCNC 1.7 mg/dL Normal 10/24/2023 1.7 - 2. 8 [facility] PHOSPHATE SERPL MCNC 2.6 mg/dL Normal 10/24/2023 2.5 - 4. 5 [facility] GLUCOSE BLDC GLUCOMTR MCNC 109.0 mg/dL Normal 10/24/2023 70 - 199 [facility] GLUCOSE BLDC GLUCOMTR MCNC 116.0 mg/dL Normal 10/24/2023 70 - 199 [facility] GLUCOSE BLDC GLUCOMTR MCNC 124.0 mg/dL Normal 10/23/2023 70 - 199 [facility] GLUCOSE BLDC GLUCOMTR MCNC 123.0 mg/dL Normal 10/23/2023 70 - 199 [facility] INR PPP 0.9 Normal 10/23/2023 0.8 - 1.1 [facility] PT TIME PPP 10.7 sec Normal 10/23/2023 10.5 - 13.3 [facility] [place] MAGNESIUM SERPL MCNC 1.8 mg/dL Normal 10/23/2023 1.7 - 2. 8 [facility] CALCIUM SERPL MCNC 8.1 mg/dL Below low normal 10/23/2023 8.4 - 10.2 [facility] BUN SERPL MCNC 22.0 mg/dL Above high normal 10/23/2023 7 - 1 7 [facility] ALBUMIN SERPL BCG MCNC 3.1 g/dL Below low normal 10/23/2023 3.5 - 5 [facility] POTASSIUM SERPL SCNC 3.8 mmol/L Normal 10/23/2023 3.5 - 5 .1 [facility] BILIRUB SERPL MCNC 1.5 mg/dL Above high normal 10/23/2023 0. 3 - 1 [facility] GLUCOSE P FAST SERPL MCNC 108.0 mg/dL Above high normal 10/23/2023 70 - 99 [facility] HCO3 SER SCNC 21.0 mmol/L Below low normal 10/23/2023 24 - 3 2 [facility] SODIUM SERPL SCNC 142.0 mmol/L Normal 10/23/2023 135 - 14 5 [facility] CREAT SERPL MCNC 0.6 mg/dL Normal 10/23/2023 0.5 - 1 CT [facility] PROT SERPL [facility] 5.7 g/dL Below low normal 10/23/2023 6.4 - 8.5 [facility] ANION GAP SERPL SCNC 9.0 mmol/L Normal 10/23/2023 5 - 14 [facility] AST SERPL CCNC 27.0 U/L Normal 10/23/2023 5 - 40 [facility] SFRAN ALT SERPL CCNC 86.0 U/L Above high normal 10/23/2023 7 - 52 [facility] ALP SERPL-CCNC 190.0 U/L Above high normal 10/23/2023 34 - 1 04 [facility] CHLORIDE SERPL SCNC 112.0 mmol/L Above high normal 98 - 107 [facility] Glomerular filtration rate/1.73 sq M. predicted 92.0 Normal 10/23/2023 60 - [facility] PHOSPHATE SERPL MCNC 1.5 mg/dL Below low normal 10/23/2023 2 .5 - 4.5 [facility] MCHC RBC AUTO MCNC 32.7 g/dL Normal 10/23/2023 32 - 36 [facility] HCT VFR BLD AUTO 35.6 % Below low normal 10/23/2023 37 - 47 [facility] WBC NO. BLD AUTO 12.4 K/uL Above high normal 10/23/2023 4 - 10.5 [facility] RDW RBC AUTO RTO 17.5 % Above high normal 10/23/2023 12.1 - 16.2 [facility] PLATELET NO. BLD AUTO 164.0 K/uL Normal 10/23/2023 150 - 450 [facility] MCV RBC AUTO 84.1 fL Normal 10/23/2023 78 - 100 [facility] PMV BLD AUTO 8.7 fL Normal 10/23/2023 7.4 - 11.4 [facility] MCH RBC QN AUTO 27.5 pg Normal 10/23/2023 25 - 33 [facility] HGB BLD MCNC 11.6 g/dL Below low normal 10/23/2023 12.5 - 16 [facility] RBC NO. BLD AUTO 4.23 M/uL Normal 10/23/2023 4.2 - 5.4 [facility] GLUCOSE BLDC GLUCOMTR MCNC 143.0 mg/dL Normal 10/23/2023 70 - 199 [facility] GLUCOSE BLDC GLUCOMTR MCNC 165.0 mg/dL Normal 10/23/2023 70 - 199 [facility] GLUCOSE BLDC GLUCOMTR MCNC 145.0 mg/dL Normal 10/22/2023 70 - 199 [facility] GLUCOSE BLDC GLUCOMTR MCNC 138.0 mg/dL Normal 10/22/2023 70 - 199 [facility] WBC NO. BLD AUTO 19.0 K/uL Above high normal 10/22/2023 4 - 10.5 [facility] MCV RBC AUTO 84.4 fL Normal 10/22/2023 78 - 100 [facility] MCH RBC QN AUTO 27.6 pg Normal 10/22/2023 25 - 33 [facility] HGB BLD MCNC 11.3 g/dL Below low normal 10/22/2023 12.5 - 16 [facility] MCHC RBC AUTO MCNC 32.7 g/dL Normal 10/22/2023 32 - 36 [facility] RBC NO. BLD AUTO 4.1 M/uL Below low normal 10/22/2023 4.2 - 5.4 [facility] RDW RBC AUTO RTO 17.9 % Above high normal 10/22/2023 12.1 - 16.2 [facility] PLATELET NO. BLD AUTO 154.0 K/uL Normal 10/22/2023 150 - 450 [facility] PMV BLD AUTO 8.3 fL Normal 10/22/2023 7.4 - 11.4 [facility] HCT VFR BLD AUTO 34.6 % Below low normal 10/22/2023 37 - 47 [facility] CALCIUM SERPL MCNC 7.6 mg/dL Below low normal 10/22/2023 8.4 - 10.2 [facility] Glomerular filtration rate/1.73 sq M. predicted 65.0 Normal 10/22/2023 60 - [facility] CREAT SERPL MCNC 0.9 mg/dL Normal 10/22/2023 0.5 - 1 [facility] SODIUM SERPL SCNC 143.0 mmol/L Normal 10/22/2023 135 - 14 5 [facility] GLUCOSE SERPL MCNC 147.0 mg/dL Normal 10/22/2023 70 - 199 [facility] CHLORIDE SERPL SCNC 115.0 mmol/L Above high normal 98 - 107 [facility] POTASSIUM SERPL SCNC 3.4 mmol/L Below low normal 10/22/2023 3.5 - 5.1 [facility] HCO3 SER SCNC 17.0 mmol/L Below low normal 10/22/2023 24 - 3 2 [facility] ANION GAP SERPL SCNC 11.0 mmol/L Normal 10/22/2023 5 - 14 [facility] BUN SERPL MCNC 31.0 mg/dL Above high normal 10/22/2023 7 - 1 7 [facility] GLUCOSE BLDC GLUCOMTR MCNC 144.0 mg/dL Normal 10/22/2023 70 - 199 [facility] GLUCOSE BLDC GLUCOMTR MCNC 128.0 mg/dL Normal 10/22/2023 70 - 199 [facility] VANCOMYCIN TROUGH SERPL MCNC 7.6 mcg/mL Below low normal 10/22/2023 10 - 20 [facility] GLUCOSE BLDC GLUCOMTR MCNC 183.0 mg/dL Normal 10/22/2023 70 - 199 [facility] GLUCOSE BLDC GLUCOMTR MCNC 111.0 mg/dL Normal 10/21/2023 70 - 199 [facility] ALBUMIN/GLOB SERPL MRTO 1.1 Normal 10/21/2023 [facility] ALP SERPL-CCNC 203.0 U/L Above high normal 10/21/2023 34 - 1 04 [facility] ALT SERPL [facility] 142.0 U/L Above high normal 10/21/2023 7 - 52 [facility] AST SERPL [facility] 79.0 U/L Above high normal 10/21/2023 5 - 40 [facility] BILIRUB SERPL MCNC 1.4 mg/dL Above high normal 10/21/2023 0. 3 - 1 [facility] BILIRUB DIRECT SERPL MCNC 0.8 mg/dL Above high normal 10/21/2023 0 - 0.2 [facility] ALBUMIN SERPL BCG MCNC 2.7 g/dL Below low normal 10/21/2023 3.5 - 5 [facility] PROT SERPL MCNC 5.2 g/dL Below low normal 10/21/2023 6.4 - 8.5 [facility] PMV BLD AUTO 8.0 fL Normal 10/21/2023 7.4 - 11.4 [facility] RBC QN AUTO 28.4 pg Normal 10/21/2023 25 - 33 [facility] HGB BLD MCNC 10.6 g/dL Below low normal 10/21/2023 12.5 - 16 [facility] RBC NO. BLD AUTO 3.73 M/uL Below low normal 10/21/2023 4.2 - 5.4 [facility] HCT VFR BLD AUTO 31.5 % Below low normal 10/21/2023 37 - 47 [facility] WBC NO. BLD AUTO 23.1 K/uL Above high normal 10/21/2023 4 - 10.5 [facility] RDW RBC AUTO RTO 18.0 % Above high normal 10/21/2023 12.1 - 16.2 [facility] MCV RBC AUTO 84.6 fL Normal 10/21/2023 78 - 100 [facility] MCHC RBC AUTO MCNC 33.5 g/dL Normal 10/21/2023 32 - 36 [facility] PLATELET NO. BLD AUTO 164.0 K/uL Normal 10/21/2023 150 - 450 [facility] POTASSIUM SERPL SCNC 4.5 mmol/L Normal 10/21/2023 3.5 - 5 .1 [facility] HCO3 SER SCNC 16.0 mmol/L Below low normal 10/21/2023 24 - 3 2 [facility] GLUCOSE SERPL MCNC 113.0 mg/dL Normal 10/21/2023 70 - 199 [facility] CREAT SERPL MCNC 1.0 mg/dL Normal 10/21/2023 0.5 - 1 [facility] SODIUM SERPL SCNC 142.0 mmol/L Normal 10/21/2023 135 - 14 5 [facility] Glomerular filtration rate/1.73 sq M. predicted 58.0 Below low normal 10/21/2023 60 - [facility] N CALCIUM SERPL MCNC 7.5 mg/dL Below low normal 10/21/2023 8.4 - 10.2 [facility] BUN SERPL MCNC 30.0 mg/dL Above high normal 10/21/2023 7 - 1 7 [facility] CHLORIDE SERPL SCNC 115.0 mmol/L Above high normal 98 - 107 [facility] ANION GAP SERPL SCNC 11.0 mmol/L Normal 10/21/2023 5 - 14 [facility] GLUCOSE BLDC GLUCOMTR MCNC 112.0 mg/dL Normal 10/21/2023 70 - 199 [facility] PH BLDA 7.311 Below low normal 10/20/2023 7.35 - 7.45 [facility] PCO2 BLDA 30.4 mmHg Below low normal 10/20/2023 35 - 45 [facility] PO2 BLDA 141.0 mmHg Above high normal 10/20/2023 80 - 105 [facility] SAO2% BLDA 99.0 % Above high normal 10/20/2023 95 - 98 [facility] BASE DEFICIT BLDA SCNC 11.0 mmol/L Above high normal 10/20/2023 0 - 2 [facility] HCO3 BLDA SCNC 15.3 mmol/L Below low normal 10/20/2023 22 - 26 [facility] BLOOD GAS SITE NOT SPECIFIED Normal 10/20/2023 [facility] PH BLDA 7.34 Below low normal 10/20/2023 7.35 - 7.45 [facility] SAO2% BLDA 99.5 % Above high normal 10/20/2023 95 - 98 [facility] PO2 BLDA 167.0 mmHg Above high normal 10/20/2023 80 - 105 [facility] BASE DEFICIT BLDA SCNC 9.2 mmol/L Above high normal 10/20/2023 0 - 2 [facility] HCO3 BLDA SCNC 17.8 mmol/L Below low normal 10/20/2023 22 - 26 [facility] PCO2 BLDA 28.0 mmHg Below low normal 10/20/2023 35 - 45 [facility] SPECIMEN TYPE ARTERIAL Normal 10/20/2023 [facility] LIPASE SERPL CCNC 145.0 U/L Above high normal 10/20/2023 11 - 82 [facility] MAGNESIUM SERPL MCNC 1.9 mg/dL Normal 10/20/2023 1.7 - 2. 8 [facility] TRIGL SERPL-MCNC 293.0 mg/dL Above high normal 10/20/2023 - 150 [facility] GLUCOSE SERPL MCNC 104.0 mg/dL Normal 10/20/2023 70 - 199 [facility] ALP SERPL-CCNC 200.0 U/L Above high normal 10/20/2023 34 - 1 04 [facility] POTASSIUM SERPL SCNC 4.5 mmol/L Normal 10/20/2023 3.5 - 5 .1 [facility] BILIRUB SERPL MCNC 2.3 mg/dL Above high normal 10/20/2023 0. 3 - 1 [facility] CALCIUM SERPL MCNC 7.4 mg/dL Below low normal 10/20/2023 8.4 - 10.2 [facility] PROT SERPL MCNC 5.1 g/dL Below low normal 10/20/2023 6.4 - 8.5 [facility] ANION GAP SERPL SCNC 13.0 mmol/L Normal 10/20/2023 5 - 14 [facility] ALT SERPL CCNC 219.0 U/L Above high normal 10/20/2023 7 - 52 [facility] CHLORIDE SERPL SCNC 113.0 mmol/L Above high normal 4 98 - 107 [facility] BUN SERPL MCNC 21.0 mg/dL Above high normal 10/20/2023 7 - 1 7 [facility] HCO3 SER SCNC 13.0 mmol/L Below low normal 10/20/2023 24 - 3 2 [facility] CREAT SERPL MCNC 0.8 mg/dL Normal 10/20/2023 0.5 - 1 [facility] SODIUM SERPL SCNC 139.0 mmol/L Normal 10/20/2023 135 - 14 5 [facility] ALBUMIN SERPL BCG MCNC 2.7 g/dL Below low normal 10/20/2023 3.5 - 5 [facility] AST SERPL CCNC 180.0 U/L Above high normal 10/20/2023 5 - 40 [facility] Glomerular filtration rate/1.73 sq M. predicted 75.0 Normal 10/20/2023 60 - [facility] MCH RBC QN AUTO 27.2 pg Normal 10/20/2023 25 - 33 [facility] PLATELET NO. BLD AUTO 190.0 K/uL Normal 10/20/2023 150 - 450 [facility] PMV BLD AUTO 8.3 fL Normal 10/20/2023 7.4 - 11.4 [facility] RDW RBC AUTO RTO 17.9 % Above high normal 10/20/2023 12.1 - 16.2 [facility] WBC NO. BLD AUTO 23.2 K/uL Above high normal 10/20/2023 4 - 10.5 [facility] RBC NO. BLD AUTO 3.85 M/uL Below low normal 10/20/2023 4.2 - 5.4 [facility] MCV RBC AUTO 86.9 fL Normal 10/20/2023 78 - 100 [facility] MCHC RBC AUTO MCNC 31.3 g/dL Below low normal 10/20/2023 32 - 36 [facility] HGB BLD MCNC 10.5 g/dL Below low normal 10/20/2023 12.5 - 16 [facility] HCT VFR BLD AUTO 33.4 % Below low normal 10/20/2023 37 - 47 [facility] PHOSPHATE SERPL MCNC 3.1 mg/dL Normal 10/20/2023 2.5 - 4. 5 [facility] MCHC RBC AUTO MCNC 31.7 g/dL Below low normal 10/19/2023 32 - 36 [facility] RDW RBC AUTO RTO 17.6 % Above high normal 10/19/2023 12.1 - 16.2 [facility] PLATELET NO. BLD AUTO 204.0 K/uL Normal 10/19/2023 150 - 450 [facility] MCV RBC AUTO 86.5 fL Normal 10/19/2023 78 - 100 [facility] HCT VFR BLD AUTO 33.4 % Below low normal 10/19/2023 37 - 47 [facility] HGB BLD MCNC 10.6 g/dL Below low normal 10/19/2023 12.5 - 16 [facility] PMV BLD AUTO 7.5 fL Normal 10/19/2023 7.4 - 11.4 [facility] WBC NO. BLD AUTO 24.6 K/uL Above high normal 10/19/2023 4 - 10.5 [facility] MCH RBC QN AUTO 27.5 pg Normal 10/19/2023 25 - 33 [facility] RBC NO. BLD AUTO 3.86 M/uL Below low normal 10/19/2023 4.2 - 5.4 [facility] MAGNESIUM SERPL MCNC 1.9 mg/dL Normal 10/19/2023 1.7 - 2. 8 [facility] ANION GAP SERPL SCNC 7.0 mmol/L Normal 10/19/2023 5 - 14 [facility] POTASSIUM SERPL SCNC 4.5 mmol/L Normal 10/19/2023 3.5 - 5 .1 [facility] SODIUM SERPL SCNC 138.0 mmol/L Normal 10/19/2023 135 - 14 5 [facility] GLUCOSE SERPL MCNC 81.0 mg/dL Normal 10/19/2023 70 - 199 [facility] ALP SERPL-CCNC 193.0 U/L Above high normal 10/19/2023 34 - 1 04 [facility] CHLORIDE SERPL SCNC 114.0 mmol/L Above high normal 98 - 107 [facility] AST SERPL CCNC 216.0 U/L Above high normal 10/19/2023 5 - 40 [facility] BILIRUB SERPL MCNC 2.9 mg/dL Above high normal 10/19/2023 0. 3 - 1 [facility] Glomerular filtration rate/1.73 sq M. predicted 75.0 Normal 10/19/2023 60 - [facility] PROT SERPL MCNC 4.8 g/dL Below low normal 10/19/2023 6.4 - 8.5 [facility] HCO3 SER SCNC 17.0 mmol/L Below low normal 10/19/2023 24 - 3 2 [facility] ALT SERPL CCNC 241.0 U/L Above high normal 10/19/2023 7 - 52 [facility] CALCIUM SERPL MCNC 7.1 mg/dL Below low normal 10/19/2023 8.4 - 10.2 [facility] CREAT SERPL MCNC 0.8 mg/dL Normal 10/19/2023 0.5 - 1 [facility] BUN SERPL MCNC 21.0 mg/dL Above high normal 10/19/2023 7 - 1 7 [facility] ALBUMIN SERPL BCG MCNC 2.7 g/dL Below low normal 10/19/2023 3.5 - 5 [facility] PHOSPHATE SERPL MCNC 3.8 mg/dL Normal 10/19/2023 2.5 - 4. 5 [facility] O2/INSPIRED GAS SETTING VFR VENT FIO2 not recorded Normal 10/19/2023 [facility] SAO2% BLDA 99.8 % Above high normal 10/19/2023 95 - 98 [facility] PO2 BLDA 136.0 mmHg Above high normal 10/19/2023 80 - 105 [facility] BASE DEFICIT BLDA SCNC 10.2 mmol/L Above high normal 10/19/2023 0 - 2 [facility] PCO2 BLDA 33.0 mmHg Below low normal 10/19/2023 35 - 45 [facility] HCO3 BLDA SCNC 17.0 mmol/L Below low normal 10/19/2023 22 - 26 [facility] PH BLDA 7.28 Below low normal 10/19/2023 7.35 - 7.45 [facility] SPECIMEN TYPE ARTERIAL Normal 10/19/2023 [facility] BASE DEFICIT BLDA SCNC 11.5 mmol/L Above high normal 10/19/2023 0 - 2 [facility] SAO2% BLDA 100.0 % Above high normal 10/19/2023 95 - 98 [facility] HCO3 BLDA SCNC 16.0 mmol/L Below low normal 10/19/2023 22 - 26 [facility] PCO2 BLDA 35.0 mmHg Normal 10/19/2023 35 - 45 [facility] O2/INSPIRED GAS SETTING VFR VENT FIO2 not recorded Normal 10/19/2023 [facility] PH BLDA 7.24 Below low normal 10/19/2023 7.35 - 7.45 [facility] PO2 BLDA 193.0 mmHg Above high normal 10/19/2023 80 - 105 [facility] SPECIMEN TYPE ARTERIAL Normal 10/19/2023 [facility] MAGNESIUM SERPL MCNC 1.6 mg/dL Below low normal 10/19/2023 1 .7 - 2.8 [facility] LACTATE SERPL SCNC 1.2 mmol/L Normal 10/19/2023 0.5 - 2 [facility] PHOSPHATE SERPL MCNC 5.7 mg/dL Above high normal 10/19/2023 2.5 - 4.5 [facility] HCO3 SER SCNC 18.0 mmol/L Below low normal 10/19/2023 24 - 3 2 [facility] CREAT SERPL MCNC 0.9 mg/dL Normal 10/19/2023 0.5 - 1 [facility] ALBUMIN SERPL BCG MCNC 2.9 g/dL Below low normal 10/19/2023 3.5 - 5 [facility] GLUCOSE SERPL MCNC 99.0 mg/dL Normal 10/19/2023 70 - 199 [facility] CHLORIDE SERPL SCNC 114.0 mmol/L Above high normal 4 98 - 107 [facility] ALT SERPL CCNC 267.0 U/L Above high normal 10/19/2023 7 - 52 [facility] PROT SERPL MCNC 5.0 g/dL Below low normal 10/19/2023 6.4 - 8.5 [facility] POTASSIUM SERPL SCNC 4.4 mmol/L Normal 10/19/2023 3.5 - 5 .1 [facility] CALCIUM SERPL MCNC 7.1 mg/dL Below low normal 10/19/2023 8.4 - 10.2 [facility] ALP SERPL-CCNC 204.0 U/L Above high normal 10/19/2023 34 - 1 04 [facility] Glomerular filtration rate/1.73 sq M. predicted 65.0 Normal 10/19/2023 60 - [facility] BUN SERPL MCNC 22.0 mg/dL Above high normal 10/19/2023 7 - 1 7 [facility] BILIRUB SERPL MCNC 3.1 mg/dL Above high normal 10/19/2023 0. 3 - 1 [facility] ANION GAP SERPL SCNC 10.0 mmol/L Normal 10/19/2023 5 - 14 [facility] AST SERPL CCNC 285.0 U/L Above high normal 10/19/2023 5 - 40 [facility] SODIUM SERPL SCNC 142.0 mmol/L Normal 10/19/2023 135 - 14 5 [facility] MCV RBC AUTO 85.7 fL Normal 10/19/2023 78 - 100 [facility] RBC NO. BLD AUTO 4.01 M/uL Below low normal 10/19/2023 4.2 - 5.4 [facility] HGB BLD MCNC 11.0 g/dL Below low normal 10/19/2023 12.5 - 16 [facility] MCHC RBC AUTO MCNC 32.1 g/dL Normal 10/19/2023 32 - 36 [facility] PLATELET NO. BLD AUTO 217.0 K/uL Normal 10/19/2023 150 - 450 [facility] MCH RBC QN AUTO 27.5 pg Normal 10/19/2023 25 - 33 [facility] PMV BLD AUTO 7.3 fL Below low normal 10/19/2023 7.4 - 11. 4 [facility] RDW RBC AUTO RTO 17.5 % Above high normal 10/19/2023 12.1 - 16.2 [facility] HCT VFR BLD AUTO 34.4 % Below low normal 10/19/2023 37 - 47 [facility] WBC NO. BLD AUTO 29.6 K/uL Above high normal 10/19/2023 4 - 10.5 [facility] TRIGL SERPL-MCNC 161.0 mg/dL Above high normal 10/19/2023 - 150 [facility] PH BLDA 7.18 Below low normal 10/19/2023 7.35 - 7.45 [facility] BASE DEFICIT BLDA SCNC 10.8 mmol/L Above high normal 10/19/2023 0 - 2 [facility] SAO2% BLDA 100.0 % Above high normal 10/19/2023 95 - 98 [facility] PCO2 BLDA 46.0 mmHg Above high normal 10/19/2023 35 - 45 C [facility] PO2 BLDA 251.0 mmHg Above high normal 10/19/2023 80 - 105 [facility] HCO3 BLDA SCNC 16.6 mmol/L Below low normal 10/19/2023 22 - 26 [facility] O2/INSPIRED GAS SETTING VFR VENT FIO2 not recorded Normal 10/19/2023 [facility] SPECIMEN TYPE ARTERIAL Normal 10/19/2023 [facility] [place] GLUCOSE BLDC GLUCOMTR MCNC 100.0 mg/dL Normal 10/19/2023 70 - 199 [facility] PH BLDV 7.22 Below low normal 10/19/2023 7.35 - 7.45 [facility] HCO[facility] BLDV SCNC 17.6 mmol/L Normal 10/19/2023 [facility] BASE DEFICIT BLDV SCNC 9.0 mmol/L Normal 10/19/2023 [facility] SAO2% BLDV 83.0 % Normal 10/19/2023 [facility] N PO2 BLDV 55.0 mmHg Normal 10/19/2023 [facility] PCO2 BLDV 46.0 mmHg Normal 10/19/[address] BLOOD G[facility] SITE VENOUS Normal [facility] Ql Strip.auto NEGATIVE Normal [facility]/2023 [facility] Ketones Ur Ql Strip.auto NEGATIVE Normal 10/19/2023 [facility] Leukocyte esterase Ur Ql Strip.auto NEGATIVE Normal 10/19/2023 [facility] Glucose Ur Ql Strip.auto NEGATIVE Normal 10/19/2023 [facility] Sp Gr Ur Strip.auto 1.015 Normal 10/19/2023 1.005 - 1.03 [facility] Clarity Ur Refract.auto CLEAR Normal 10/19/[address]23 [facility] pH Ur Strip.auto 5.0 Normal 10/19/2023 4.5 - 8 [facility] Nitrite Ur Ql Strip.auto NEGATIVE Normal [facility] H[facility]l Strip.auto NEGATIVE Normal [facility]2023 [facility] S[facility] XXX URINE CLEAN CATCH Normal 10/19[facility] LACTATE [facility]PL SCNC 1.6 mmol/L Normal 10/19/2023 0.5 - 2 [facility] APTT TIME PPP 29.0 sec Normal 10/19/2023 25 - 37 [facility] [place] ALT SERPL CCNC 233.0 U/L Above high normal 10/19/2023 7 - 52 [facility] BILIRUB SERPL MCNC 3.1 mg/dL Above high normal 10/19/2023 0. 3 - 1 [facility] ALBUMIN SERPL BCG MCNC 3.0 g/dL Below low normal 10/19/2023 3.5 - 5 [facility] PROT SERPL MCNC 5.0 g/dL Below low normal 10/19/2023 6.4 - 8.5 [facility] AST SERPL CCNC 279.0 U/L Above high normal 10/19/2023 5 - 40 [facility] BILIRUB DIRECT SERPL MCNC 2.2 mg/dL Above high normal 10/19/2023 0 - 0.2 [facility] ALBUMIN/GLOB SERPL MRTO 1.5 Normal 10/19/2023 [facility] ALP SERPL-CCNC 204.0 U/L Above high normal 10/19/2023 34 - 1 04 [facility] BNP BLD MCNC 554.0 pg/mL Above high normal 10/19/2023 0 - 10 0 [facility] PT TIME PPP 13.2 sec Normal 10/19/2023 10.5 - 13.3 [facility] [place] INR PPP 1.1 Normal 10/19/2023 0.8 - 1.1 [facility] Procalcitonin SerPl IA-mCnc 118.75 ng/mL Above high normal 10/19/2023 - 0.05 [facility] POTASSIUM SERPL SCNC 2.9 mmol/L Below low normal 10/19/2023 3.5 - 5.1 [facility] BUN SERPL MCNC 20.0 mg/dL Above high normal 10/19/2023 7 - 1 7 [facility] CHLORIDE SERPL SCNC 114.0 mmol/L Above high normal 4 98 - 107 [facility] CREAT SERPL MCNC 0.9 mg/dL Normal 10/19/2023 0.5 - 1 CT [facility] Glomerular filtration rate/1.73 sq M. predicted 65.0 Normal 10/19/2023 60 - [facility] HCO3 SER SCNC 18.0 mmol/L Below low normal 10/19/2023 24 - 3 2 [facility] GLUCOSE SERPL MCNC 102.0 mg/dL Normal 10/19/2023 70 - 199 [facility] SODIUM SERPL SCNC 145.0 mmol/L Normal 10/19/2023 135 - 14 5 [facility] CALCIUM SERPL MCNC 7.3 mg/dL Below low normal 10/19/2023 8.4 - 10.2 [facility] ANION GAP SERPL SCNC 13.0 mmol/L Normal 10/19/2023 5 - 14 [facility] HCT VFR BLD AUTO 35.0 % Below low normal 10/19/2023 37 - 47 [facility] RDW RBC AUTO RTO 16.7 % Above high normal 10/19/2023 12.1 - 16.2 [facility] MCH RBC QN AUTO 27.8 pg Normal 10/19/2023 25 - 33 [facility] PLATELET NO. BLD AUTO 231.0 K/uL Normal 10/19/2023 150 - 450 [facility] NEUTROPHILS NFR BLD AUTO 95.3 % Above high normal 10/19/2023 44 - 74 [facility] MONOCYTES NO. BLD AUTO 0.4 K/uL Normal 10/19/2023 0 - 0.8 [facility] BASOPHILS NFR BLD AUTO 0.1 % Normal 10/19/2023 0 - 2 [facility] EOSINOPHIL NFR BLD AUTO 0.1 % Normal 10/19/2023 0 - 6 [facility] DIFFERENTIAL TYPE AUTOMATED Normal 10/19/2023 C [facility] RBC NO. BLD AUTO 4.07 M/uL Below low normal 10/19/2023 4.2 - 5.4 [facility] MONOCYTES NFR BLD AUTO 3.0 % Normal 10/19/2023 2 - 12 [facility] EOSINOPHIL NO. BLD AUTO 0.0 K/uL Normal 10/19/2023 0 - 0.5 [facility] LYMPHOCYTES NO. BLD AUTO 0.2 K/uL Below low normal 10/19/2023 1 - 3.2 [facility] WBC NO. BLD AUTO 13.7 K/uL Above high normal 10/19/2023 4 - 10.5 [facility] BASOPHILS IN BLOOD BY AUTOMATED COUNT 0.0 K/uL Normal 10/19/2023 0 - 0.2 [facility] NEUTROPHILS NO. BLD AUTO 13.1 K/uL Above high normal 10/19/2023 1.8 - 7.8 [facility] MCV RBC AUTO 85.9 fL Normal 10/19/2023 78 - 100 [facility] PMV BLD AUTO 7.1 fL Below low normal 10/19/2023 7.4 - 11. 4 [facility] LYMPHOCYTES NFR BLD AUTO 1.5 % Below low normal 10/19/2023 20 - 48 [facility] HGB BLD MCNC 11.3 g/dL Below low normal 10/19/2023 12.5 - 16 [facility] MCHC RBC AUTO MCNC 32.3 g/dL Normal 10/19/2023 32 - 36 [facility] LIPASE SERPL CCNC 2081.0 U/L Above high normal 10/19/2023 11 - 82 [facility] History of Medication Use Medication Directions Dispensed Refills Start Date End Date Stat haloperidol lactate (HALDOL) injection 1 mg 1 mg, Intramuscular, Once, On Thu11/02/23 at 1415, For 1 dose 11/01/2023 4 completed metroNIDAZOLE (FLAGYL) tablet 500 mg 500 mg, Oral, Every 12 hours scheduled (2 times per day), First dose (after last modification) on 10/31/23 at 2100, For 3 doses 10/30/2023 4 completed sodium chloride 0.9% (NS) infusion 50 mL/hr, Intravenous, Continuous, Starting on Lia 10/29/23 at 1615, For 8 hours 10/28/2023 4 completed enoxaparin (LOVENOX) syringe 40 mg 40 mg, Subcutaneous, Every 24 hours scheduled (Daily), First dose on Thu10/27/23 at 0900Administer in abdomen (at least 2 inches from navel) 10/27/2023 active acetaminophen (TYLENOL) tablet 650 mg 650 mg, Oral, Every 6 hours PRN, moderate pain (4-6), mild pain (1-3), headaches, fever, Starting on Thu10/26/23 at 1951 10/26/2023 active amLODIPine (NORVASC) tablet 2.5 mg 2.5 mg, Oral, Daily, First dose on Thu10/25/23 at 0900 10/25/2023 4 aborted atorvastatin (LIPITOR) tablet 40 mg 40 mg, Oral, Daily, First dose on Thu10/25/23 at 0900Pregnancy Risk Factor Category: X 10/25/2023 active budesonide (PULMICORT) nebulizer solution 0.25 mg 0.25 mg, Nebulization, Every 12 hours scheduled (2 times per day), First dose on Thu10/24/23 at 2100 10/25/2023 active formoterol (PERFOROMIST) nebulizer solution 20 mcg 20 mcg, Nebulization, Every 12 hours scheduled (2 times per day), First dose on Thu10/24/23 at 2100 10/25/2023 active QUEtiapine (SEROquel) 50 MG tablet Take 1 tablet (50 mg total) by mouth 2 (two) times a day. 10/25/2023 active vancomycin (VANCOCIN) 1,000 mg in sodium chloride 0.9% (NS) 250 mL IVPB-MBP 1,000 mg, Intravenous, at 250 mL/hr, Every 24 hours, First dose on Thu10/23/23 at 0000 10/23/2023 4 aborted Potassium Phosphate 15 mmol/250 ml NS infusion 15 mmol, Intravenous, Administer over 180 Minutes, Once, On Thu10/23/23 at 0930, For 1 dose 10/23/2023 4 completed pantoprazole (PROTONIX) 40 MG EC tablet 40 mg 40 mg, Oral, Every Morning on an empty stomach (Daily), First dose on Thu10/22/23 at 0600, For 7 daysPlease select an indication: OtherPlease enter indication: Post biliary drain placement 10/22/2023 4 completed HYDROmorphone (DILAUDID) injection 0.5 mg 0.5 mg, Intravenous, Every 4 hours PRN, Breakthrough pain not responsive to oral/NGT meds, Starting on Thu10/26/23 at 2000Administer IV push over 2-3 minutes. 10/22/2023 4 active HYDROmorphone (DILAUDID) injection 0.25 mg 0.25 mg, Intravenous, Every 3 hours PRN, severe pain (7-10), Starting on Thu10/22/23 at 0838, For 1 doseAdminister IV push over 2-3 minutes. 10/22/2023 4 completed potassium chloride ER tablet 40 mEq 40 mEq, Per G Tube, Every 2 hours, First dose on Thu10/22/23 at 0830, For 2 dosesDo not crush or chew tablet. To make a liquid dissolution from a tablet: 1) Place the whole tablet(s) in approximately cup of water (4 fluid ounces). 2) Allow approximately 2 minutes for the tablet(s) to disinteg 10/22/2023 4 completed traZODone (DESYREL) tablet 25 mg 25 mg, Oral, Once, On Thu10/22/23 at 0030, For 1 dose 10/22/2023 4 completed naloxone (NARCAN) injection 0.4 mg 0.4 mg, Intravenous, Once as needed, opioid reversal, Starting on Thu10/22/23 at 1226, For 1 dose 10/22/2023 active nystatin (MYCOSTATIN) 820678 UNIT/ML suspension 500,000 Units 500,000 Units, Oral, 4 times daily, First dose on Thu10/22/23 at 1400 10/22/2023 active oxyCODONE (ROXICODONE) 5 MG immediate release tablet Take 1 tablet (5 mg total) by mouth every 8 (eight) hours as needed for pain. 10/22/2023 active cefTRIAXone (ROCEPHIN) injection 1,000 mg 1,000 mg, Intravenous, Every 24 hours, First dose on Thu10/21/23 at 1130If ordered IV then reconstitute with 10 mL sterile water or normal saline and administer IV push over 3 to 5 minutes. 10/21/2023 4 aborted QUEtiapine (SEROquel) tablet 25 mg 25 mg, Per NG tube, Every 6 hours PRN, other, Agitation, Starting on Thu10/26/23 at 1949 10/21/2023 4 active traZODone (DESYREL) tablet 50 mg 50 mg, Oral, Once, On Thu10/21/23 at 1830, For 1 dose 10/21/2023 4 completed dextrose (D10W) 10% bolus 125 mL [Order 1 Start] Name: dextrose (D10W) 10% bolus 125 mL Signed Summary: 125 mL, Intravenous, Administer over 10 Minutes, at 750 mL/hr, As needed, low blood sugar, Starting on Thu10/21/23 at 1126Hypoglycemia defined as FSG<70mg/dl. Use for responsive patients WITH IV access AND unable to tolerate P 10/21/2023 active ipratropium-albuter ol (DUO-NEB) nebulizer solution 3 mL 3 mL, Inhalation, Every 4 hours PRN, wheezing, shortness of breath, Starting on Thu10/21/23 at 0612 10/21/2023 active hydrocortisone sodium succinate (Solu-CORTEF) injection (PF) 100 mg 50 mg, Intravenous, Every 8 hours, First dose on Thu10/20/23 at 0100 10/20/2023 4 aborted metroNIDAZOLE (FLAGYL) IVPB 500 mg 500 mg, Intravenous, at 100 mL/hr, Every 12 hours scheduled (2 times per day), First dose on Thu10/28/23 at 2145 10/19/2023 4 aborted acetaminophen (TYLENOL) solution 160 mg/5 mL 650 mg, Per G Tube, Once, On Lia 10/22/23 at 0500, For 1 dose 10/19/2023 4 completed heparin (porcine) injection 5,000 Units 5,000 Units, Subcutaneous, Every 8 hours, First dose on Thu10/19/23 at 0000 10/19/2023 4 aborted magnesium sulfate 2 g/50ml IVPB Premix 2 g, Intravenous, at 50 mL/hr, Every 1 hour, First dose on Thu10/26/23 at 0900, For 2 doses 10/19/2023 4 completed potassium chloride 10 mEq in 100 mL IVPB 10 mEq, Intravenous, Administer over 60 Minutes, Once, On Thu10/24/23 at 0830, For 1 doseAdminister through a peripheral line. 10/19/2023 4 completed mupirocin (BACTROBAN) 2 % ointment 1 application. 1 application., Topical, 2 times daily, First dose on Thu10/19/23 at 0900, For 5 daysApply 0.5 grams to each nostril twice daily for 5 days. FOR ICU ADMINISTRATION ONLY 10/19/2023 4 completed ceFEPime (MAXIPIME) injection 2 g 2 g, Intravenous, Every 12 hours, First dose on Thu10/18/23 at 2300If ordered IV then reconstitute with 10 mL sterile water or normal saline and administer IV push over 3 minutes.What is your current facility? [facility] 10/19/2023 4 aborted chlorhexidine (PERIDEX) 0.12 % solution 15 mL 15 mL, Swish & Spit, Every 12 hours, First dose on Thu10/19/23 at 0245SWISH FOR 30 SECONDS AND THEN SPIT OUT 10/19/2023 4 aborted fentaNYL (SUBLIMAZE) injection 50 mcg 50 mcg, Intravenous, Every 2 hours PRN, severe pain (7-10), CPOT >2, Starting on Thu10/19/23 at 0301 10/19/2023 4 aborted pantoprazole (PROTONIX) injection 40 mg 40 mg, Intravenous, Daily, First dose on Thu10/19/23 at 0900Please select an indication: Stress Ulcer Prophylaxis 10/19/2023 4 aborted vasopressin 20 Units in sodium chloride (NS) 0.9 % 50 mL infusion (0.4 Units/mL) 0.04 Units/min (6 mL/hr), Intravenous, Continuous, Starting on Thu10/18/23 at 2200Maintenance rate: 0.01-0.04 units/min, titrate by 0.01 unit/min every 15 minutes, Max Dose: 0.04 unit/min, Goal: SBP > 100 or MAP > 60 10/19/2023 4 aborted lactated ringers infusion 150 mL/hr, Intravenous, Continuous, Starting on Thu10/19/23 at 0315, For 12 hours 10/19/2023 4 completed midazolam (VERSED) injection 1 mg 1 mg, Intravenous, Every 2 hours PRN, sedation, give only if patient does not respond to PRN fentanyl, Starting on Thu10/19/23 at 1651 10/19/2023 4 aborted fentaNYL (SUBLIMAZE) injection As needed, Starting on Thu10/19/23 at 1031, Intra-Procedure (IR) 10/19/2023 4 completed fentaNYL (SUBLIMAZE) injection 25 mcg 25 mcg, Intravenous, Once, On Thu10/18/23 at 2145, For 1 dose 10/19/2023 4 completed hydrocortisone sodium succinate (Solu-CORTEF) injection (PF) 100 mg 100 mg, Intravenous, Once, On Thu10/19/23 at 1700, For 1 dose 10/19/2023 4 completed iopamidol (ISOVUE-370) 76 % injection 45 mL 45 mL, Intravenous, IMG once as needed, contrast, Starting on Thu10/19/23 at 1130, For 1 doseLot #: [id number] 10/19/2023 4 completed lactated ringers bolus 1,000 mL 1,000 mL, Intravenous, Administer over 1 Hours, Once, On Thu10/19/23 at 0800, For 1 dose 10/19/2023 4 completed LORazepam (ATIVAN) 2 MG/ML injection Starting on Thu10/18/23 at 2206, For 1 doseNighat Winkler: cabinet override 10/19/2023 4 completed LORazepam (ATIVAN) 2 MG/ML injection 1 mg 1 mg, Intravenous, Once, On Thu10/18/23 at 2230, For 1 dose 10/19/2023 4 completed midazolam (VERSED) injection As needed, Starting on Thu10/19/23 at 1030, Intra-Procedure (IR) 10/19/2023 4 completed norepinephrine (LEVOPHED) 8-0.9 MG/250ML-% infusion (0.032 mg/mL) Starting on Thu10/18/23 at 2029, For 1 Nighat Cool: cabinet override *STANDARD Concentration 0.032 mg/mL = 32 mcg/ml* 10/19/2023 4 completed potassium chloride 20 mEq in 100 mL IVPB 20 mEq, Intravenous, Administer over 60 Minutes, Every 1 hour, First dose on Thu10/19/23 at 0500, For 2 dosesFor central line infusion only. 10/19/2023 4 completed sodium chloride 0.9% (NS) infusion Intra-op continuous PRN, Starting on Thu10/19/23 at 1016, Intra-Procedure (IR) 10/19/2023 4 completed ondansetron (ZOFRAN) injection 4 mg 4 mg, Intravenous, Every 6 hours PRN, nausea, vomiting, Starting on Thu10/18/23 at 2114IV push over 2 to 5 minutes. 10/19/2023 active amLODIPine (NORVASC) tablet 2.5 mg Take 1 tablet (2.5 mg total) by mouth daily. 09/09/2023 active potassium chloride (KLOR-CON) 20 MEQ packet Take 20 mEq by mouth daily. 06/09/2023 active loperamide (IMODIUM) 2 MG capsule Take 1 capsule (2 mg total) by mouth 4 (four) times a day as needed. 06/08/2023 4 aborted fluticasone-salmete rol (ADVAIR HFA) 115-21 MCG/ACT inhaler Inhale 2 puffs into the lungs daily. 03/26/2023 active montelukast (SINGULAIR) tablet 10 mg 10 mg, Oral, Daily, First dose (after last modification) on Thu10/27/23 at 0900 11/10/2017 4 active atorvastatin (LIPITOR) tablet 40 mg Take 1 tablet (40 mg total) by mouth daily. 11/10/2017 active Omeprazole 20 MG TBEC Take 20 mg by mouth daily. 11/10/2017 active sulfaSALAzine (AZULFIDINE) 500 MG tablet Take 1 tablet (500 mg total) by mouth daily. 11/10/2017 active Allergies Allergen Reaction Severity Comment Documented Date Source Statu s PENICILLINS HIVES 10/18/2023 [facility] active CODEINE OTHER (SEE COMMENTS) Altered mental status [facility] NIACIN HIVES [facility] Problems Problem Status Onset Date Problem Type Date of Resolution Source Acute hypotension active 2023-10-18 ProblemAct [facility] Ascending cholangitis active 2023-10-19 ProblemAct [facility] Septic shock (HCC) active EncounterDiagnosisAct [facility] Pancreatitis, unspecified pancreatitis type active 2023-10-18 ProblemAct [facility] Elevated bilirubin active 2023-10-18 ProblemAct [facility] Encounters Encounter Type Encounter Reason Primary Diagnosis Location Date Inpatient Sepsis, unspecified organism Sepsis, unspecified organism [place] 10/18/2023 Care Team Organization Name Specialty Phone Email Start Date End Da te [place] 4 10/18/2024 [facility] 0 10/19/2023 [place] 4 [facility] 02/11/2022 11/23/2023
== END 2025-02-09 11:17 | disposition home or self-care (01) ==
LOC: HO.PMC 10:45
PROVIDERS: PCP Internal Medicine; Visit Provider Anesthesiology
DX: M16.11 Unilateral primary osteoarthritis, right hip (principal); M25.551 Pain in right hip
CPT/HCPCS: 99214

== ENCOUNTER → 2025-02-09 10:45 | Outpatient (BNVA) | payer MEDICARE, MEDICAID, SELFPAY | PROVIDERS: PCP Internal Medicine; Visit Provider Anesthesiology | DX: M25.551 Pain in right hip (principal); M16.11 Unilateral primary osteoarthritis, right hip | CPT/HCPCS: 99212 ==